=== PATIENT | male | born 1955 | race Caucasian/White ===

== ENCOUNTER 2017-06-22 07:59 | Emergency (ER) | payer MEDICARE, MEDICAID ==
[2017-06-22] MEDS ORDERED: HYDROmorphone 1 MG/ML Syringe IM ONE (08:52)
--- NOTE | 2017-06-22 09:03 | EDM.PDOC ---
ED HPI GENERAL MEDICAL PROBLEM - General Chief Complaint: General Stated Complaint: NOT EATING, VOIDING, WEAKNESS Time Seen by Provider: 06/22/17 08:35 Source of Information: Reports: Patient, Family, RN Notes Reviewed History Limitations: Reports: Physical Impairment - History of Present Illness INITIAL COMMENTS - FREE TEXT/NARRATIVE: 61-year-old gentleman presents emergency department today with increasing weakness and ongoing pain, he has a known history of schizophrenia is a [facility] of a [facility] he is brought in by [facility] provider. Difficult to obtain history and review of systems from him, he does have a known history of chronic neck pain with degenerative disease as well as an L2 compression fracture, states that the pain has been increasing over the last week using combination naproxen and Tylenol with minimal relief pain has been so extensive that he's been unable to eat or drink for the last week. - Related Data Allergies Allergy/AdvReac Type Severity Reaction Status Date / Time Sulfa (Sulfonamide Allergy UNKNOWN Verified 06/22/17 08:30 Antibiotics) Home Meds: Home Meds ClonazePAM [KlonoPIN] 0.5 mg PO TID PRN 06/22/17 [History] Naproxen [Naprosyn] 500 mg PO BID PRN 06/22/17 [History] OLANZapine [Zyprexa] 30 mg PO BID 06/22/17 [History] Polyethylene Glycol 3350 [MiraLAX] 17 gm PO ASDIRECTED PRN 06/22/17 [History] chlorproMAZINE [Thorazine] 50 mg IM BID PRN 06/22/17 [History] chlorproMAZINE [Thorazine] 100 mg PO Q4H PRN 06/22/17 [History] cloNIDine [Catapres] 0.1 mg PO Q12HR 06/22/17 [History] cloZAPine [Fazaclo] 400 mg PO BID 06/22/17 [History] diphenhydrAMINE [Benadryl] 25 mg PO Q4H PRN 06/22/17 [History] Past Medical History Cardiovascular History: Reports: High Cholesterol Psychiatric History: Reports: Schizophrenia Social & Family History - Family History Family Medical History: Noncontributory - Tobacco Use Smoking Status *Q: Never Smoker Second Hand Smoke Exposure: No - Caffeine Use Caffeine Use: Reports: None - Recreational Drug Use Recreational Drug Use: No ED ROS GENERAL - Review of Systems Review Of Systems: Unable To Obtain ED EXAM, GENERAL - Physical Exam Exam: See Below Free Text/Narrative:: General: Male, not in any distress, alert minimally communicative HEENT: head is atraumatic normocephalic, eyes pupils equal round reactive to light, sclera clear no conjunctivitis appreciated. Ears tympanic membranes clear and [place] landmarks and light reflex are present bilaterally canals are clear. Nose no septal deviation, nares are clear, no blood present. Mouth mucosa is moist and pink no erythema or exudate noted in soft palate, tongue is midline uvula is midline, dentition is intact. Neck: Supple no thyromegaly no tracheal deviation. Complains of tenderness both spinally and paraspinally in the cervical region, Nodes: Cervical nodes subclavicular nodes nontender no palpable lymphadenopathy noted. Lungs: clear to auscultation bilaterally with symmetrical respirations, no adventitious noise appreciated. CV: Regular rate and rhythm S1 and S2 appreciated no murmurs rubs or gallops noted. Thorax no pinpoint tenderness to palpation over the cervical spine Abdomen: Soft, nontender, no palpable masses or organomegaly appreciated, no distention no guarding bowel sounds are present, . Neuro: Cranial nerves II through XII grossly intact Skin: Warm and dry, intact Extremities: No lower extremity edema appreciated, Course - Vital Signs Last Recorded V/S: Last Vital Signs Temp 95.9 F 06/22/17 09:49 Pulse 81 06/22/17 09:49 Resp 18 06/22/17 09:49 BP 127/77 06/22/17 09:49 Pulse Ox 100 06/22/17 09:49 - Orders/Labs/Meds Orders: Active Orders 24 hr Category Date Time Status UA W/MICROSCOPIC [URIN] Urgent Lab 06/22/17 09:56 Uncollected Labs: Laboratory Tests 06/22/17 06/22/17 06/22/17 Range/Units 09:06 09:06 09:06 WBC 7.0 (4.5-11.0) K/uL RBC 3.96 L (4.30-5.90) M/uL Hgb 11.6 L (12.0-15.0) g/dL Hct 35.7 L (40.0-54.0) % MCV 90 (80-98) fL MCH 29 (27-31) pg MCHC 33 (32-36) % Plt Count 193 (150-400) K/uL Add Manual Diff Yes Neutrophils % (Manual) 79 H (36-66) % Band Neutrophils % 1 L (5-11) % Lymphocytes % (Manual) 10 L (24-44) % Monocytes % (Manual) 7 H (2-6) % Sodium 149 H (140-148) mmol/L Potassium 3.8 (3.6-5.2) mmol/L Chloride 112 H (100-108) mmol/L Carbon Dioxide 30 (21-32) mmol/L Anion Gap 10.8 (5.0-14.0) mmol/L BUN 35 H (7-18) mg/dL Creatinine 1.4 H (0.8-1.3) mg/dL Est Cr Clr Drug Dosing 59.01 mL/min Estimated GFR (MDRD) 52 L (>60) Glucose 112 H (74-106) mg/dL Lactic Acid (0.4-2.0) mmol/L Calcium 9.9 (8.5-10.1) mg/dL Total Bilirubin 1.1 H (0.2-1.0) mg/dL AST 33 (15-37) U/L ALT 31 (12-78) U/L Alkaline Phosphatase 189 H (46-116) U/L Ammonia 18 (11-32) mmol/L Troponin I < 0.017 (0.000-0.056) ng/mL Total Protein 6.2 L (6.4-8.2) g/dL Albumin 3.1 L (3.4-5.0) g/dL Globulin 3.1 (2.3-3.5) g/dL Albumin/Globulin Ratio 1.0 L (1.2-2.2) 06/22/17 Range/Units 09:06 WBC (4.5-11.0) K/uL RBC (4.30-5.90) M/uL Hgb (12.0-15.0) g/dL Hct (40.0-54.0) % MCV (80-98) fL MCH (27-31) pg MCHC (32-36) % Plt Count (150-400) K/uL Add Manual Diff Neutrophils % (Manual) (36-66) % Band Neutrophils % (5-11) % Lymphocytes % (Manual) (24-44) % Monocytes % (Manual) (2-6) % Sodium (140-148) mmol/L Potassium (3.6-5.2) mmol/L Chloride (100-108) mmol/L Carbon Dioxide (21-32) mmol/L Anion Gap (5.0-14.0) mmol/L BUN (7-18) mg/dL Creatinine (0.8-1.3) mg/dL Est Cr Clr Drug Dosing mL/min Estimated GFR (MDRD) (>60) Glucose (74-106) mg/dL Lactic Acid 1.2 (0.4-2.0) mmol/L Calcium (8.5-10.1) mg/dL Total Bilirubin (0.2-1.0) mg/dL AST (15-37) U/L ALT (12-78) U/L Alkaline Phosphatase (46-116) U/L Ammonia (11-32) mmol/L Troponin I (0.000-0.056) ng/mL Total Protein (6.4-8.2) g/dL Albumin (3.4-5.0) g/dL Globulin (2.3-3.5) g/dL Albumin/Globulin Ratio (1.2-2.2) Meds: Medications Discontinued Medications Generic Name Dose Route Start Last Admin Trade Name Brayanq PRN Reason Stop Dose Admin Hydromorphone HCl 1 mg 06/22/17 08:52 06/22/17 09:03 Dilaudid IM 06/22/17 08:53 1 mg ONETIME ONE Administration Departure - Departure Time of Disposition: 10:23 Disposition: Home, Self-Care 01 Condition: Poor Clinical Impression: Lytic lesion of bone on x-ray - Discharge Information Forms: ED Department Discharge Additional Instructions: Use hydrocodone as needed for pain control, please follow-up with your primary care provider next week for further workup and evaluation - My Orders Last 24 Hours: My Active Orders 06/22/17 09:56 UA W/MICROSCOPIC [URIN] Urgent - Assessment/Plan Last 24 Hours: My Active Orders 06/22/17 09:56 UA W/MICROSCOPIC [URIN] Urgent Plan: Assessment Acuity = acute Site and laterality = multiple vertebral lytic lesions complicating a patient with schizophrenia Etiology = unknown etiology multiple myeloma or metastatic disease from an unknown primary source Manifestations = increasing neck pain Location of injury = Home Lab values = hemoglobin low at 11.6 consistent normochromic anemia sodium elevated at 149 consistent with hypernatremia's creatinine elevated at 1.4 consistent chronic renal failure stage GIII a total bilirubin elevated at 1.1 consistent hyperbilirubinemia alkaline phosphatase elevated 189 albumin low at 3.[address] scan shows multiple lytic lesions throughout cervical and thoracic images Plan I did discuss lab results and CT scan results with his caregiver and my concern for a cancer I also discussed case with his primary care provider felt it was best to finish the workup in clinic as a lot of the tests or send out tests his primary respiratory care faculty agreed he has a follow-up appointment next week with a we'll start the process, he was provided a prescription of 30 hydrocodone for pain Caregiver was in agreement with the plan all questions were answered, they were instructed to return to the emergency department or call for worsening symptoms. This note was dictated using [employer] voice recognition software please call with any questions.
[2017-06-22 09:49] VITALS: BP 127/77
--- NOTE | 2017-06-22 10:11 | CT ---
Cervical Spine wo Cont HISTORY: pain, increased Axial spiral noncontrasted CT scan of the cervical spine was obtained along with sagittal and neff l reconstructions. There are no prior studies for comparison. FINDINGS: Multiple small roundish lytic appearing lesions are seen in multiple cervical and upper th oracic vertebrae. At C2, a lesion is seen to the left of the base of the odontoid process. Several s mall lytic lesions are seen in the C3 vertebrae. There is an expansile lytic lesion along the right pedicle and right transverse process of C5. Several small roundish lytic-appearing lesions are seen in the C6 and C7 vertebral bodies. There is also a lytic expansile lesion at the right pedicle and t ransverse process of C7. Additional small lytic lesions are seen in the vertebral bodies at T1 and T 2. Vertebral body alignment is satisfactory. There is no compression fracture. Small anterior aspects a re noted at C5-6 and C6-7. Cervical basilar relationships are satisfactory. No obvious intraspinal a bnormality can be seen. Perivertebral soft tissues are unremarkable. There are small anterior and po sterior cervical lymph nodes bilaterally. These are not enlarged by size criteria. IMPRESSION: Numerous small lytic appearing lesions are seen in multiple cervical and upper thoracic vertebra as described above. Most prominent lesions are noted right laterally at C5 and C7. Multiple myeloma or lytic metastatic disease could be considered. Recommend clinical correlation. Findings were discussed with Officer in the emergency department at 0945 hours. Total DLP 418 mGycm
== END 2017-06-22 10:35 | disposition home or self-care (01) ==
LOC: JP.ED 07:59
DX: M89.9 Disorder of bone, unspecified (principal); F20.9 Schizophrenia, unspecified; E78.00 Pure hypercholesterolemia, unspecified; Z88.2 Allergy status to sulfonamides; Z79.899 Other long term (current) drug therapy
CPT/HCPCS: 36415; 72125; 80053; 82140; 83605; 84484; 85025; 96372; 99285; J1170; 99284

== ENCOUNTER 2017-06-26 19:30 | Emergency (ER) | payer MEDICARE, MEDICAID ==
[2017-06-26] MEDS ORDERED: Sodium Chloride 0.9% 1,000 ML IV SCH (20:00)
[2017-06-26] MEDS ORDERED: D5 1/2 NS w/ 20 mEq/L KCl 1,000 ML IV SCH (21:00)
[2017-06-26] MEDS ORDERED: HYDROmorphone 0.5 MG/0.5 ML Syringe IVPUSH ONE (21:56)
--- NOTE | 2017-06-26 23:58 | EDM.PDOC ---
ED HPI GENERAL MEDICAL PROBLEM - General Chief Complaint: Respiratory Problem Stated Complaint: MEDICAL VIA [facility] Time Seen by Provider: 06/26/17 19:58 Source of Information: Reports: Patient, Old Records, Other History Limitations: Reports: No Limitations - History of Present Illness INITIAL COMMENTS - FREE TEXT/NARRATIVE: History of present illness: [61-year-old male presenting with progressive weakness and pain complaints. Patient has been a guerra of the [facility] for many years with a diagnosis of undifferentiated schizophrenia. Over the last 3 years he's been residing in a [place] [facility] and now is presenting with progressive weakness and somnolence and pain for the last week or 2. He was in the ER recently and a CT of his neck was done because of a complaint of neck pain which demonstrated lytic lesions of the bones concerning for possible cancer metastatic disease. Patient is very somnolent started getting history from him by caregiver [employer] is with him tonight and most of my history has been gained from her. He's not been running a fever he recently had a pneumonia treated and has completed treatment for that. The patient complains of some leg pain that to primarily involves his neck but again it's difficult to get a good history from him as he is quick to fall asleep when we ask him questions.] Review of systems: As per history of present illness and below otherwise all systems reviewed and negative. Past medical history: As per history of present illness and as reviewed below otherwise noncontributory. Surgical history: As per history of present illness and as reviewed below otherwise noncontributory. Social history: No reported history of drug or alcohol abuse. Family history: As per history of present illness and as reviewed below otherwise noncontributory. Physical exam: HEENT: Atraumatic, normocephalic, pupils reactive, negative for conjunctival pallor or scleral icterus, mucous membranes moist, throat clear, neck supple, nontender, trachea midline. Lungs: Patient has crackles in his bases Heart: S1S2, regular, Abdomen: Soft, nondistended, nontender. Negative for masses or hepatosplenomegaly. Negative for costovertebral tenderness. Pelvis: Stable nontender. Genitourinary: Deferred. Rectal: Deferred. Extremities: Atraumatic, negative for cords or calf pain. Neurovascular unremarkable. Neuro: Patient is very weak and somnolent but is moving all extremities and no focal neurologic deficits are noted. Diagnostics: [Head CT was done and was negative I did a rn otolaryngology film chest abdomen and pelvis and the findings are concerning for lymphoma with multiple lucent osseous lesions in the axial skeleton and pelvis also pancreatitis was discovered on this CT. CBC and complete metabolic panel CRP amylase and lipase were done as well please see that report for details.'s amylase and lipase are elevated significantly. His alkaline phosphatase is elevated as calcium is elevated sodium is 154 potassium is a little low at 3.2 BUN/creatinine are slightly elevated which is most likely prerenal from dehydration.] Therapeutics: [He's been receiving IV fluids in the form of D5 half-normal with 20 of KCl. He' s also received 1 dose of Dilaudid for pain.] Impression: [Newly diagnosed lymphoma please see CT report for details Pancreatitis] Plan: [We've made arrangements to transfer him to [facility] in [place] is the hospitalist who is excepting him and then of course we'll consult with oncology.] Definitive disposition and diagnosis as appropriate pending reevaluation and review of above. Neck Pain Score (Numeric/FACES): 2 - Related Data Allergies Allergy/AdvReac Type Severity Reaction Status Date / Time Sulfa (Sulfonamide Allergy UNKNOWN Verified 06/22/17 08:30 Antibiotics) Home Meds: Home Meds ClonazePAM [KlonoPIN] 0.5 mg PO TID PRN 06/22/17 [History] Naproxen [Naprosyn] 500 mg PO BID PRN 06/22/17 [History] OLANZapine [Zyprexa] 30 mg PO BID 06/22/17 [History] Polyethylene Glycol 3350 [MiraLAX] 17 gm PO ASDIRECTED PRN 06/22/17 [History] chlorproMAZINE [Thorazine] 50 mg IM BID PRN 06/22/17 [History] chlorproMAZINE [Thorazine] 100 mg PO Q4H PRN 06/22/17 [History] cloNIDine [Catapres] 0.1 mg PO Q12HR 06/22/17 [History] cloZAPine [Fazaclo] 400 mg PO BID 06/22/17 [History] diphenhydrAMINE [Benadryl] 25 mg PO Q4H PRN 06/22/17 [History] ARIPiprazole [Abilify] 30 mg PO DAILY 06/26/17 [History] Hydrocodone/Acetaminophen [Hydrocodon-Acetaminophen 5-325] 06/26/17 [History] Past Medical History Cardiovascular History: Reports: High Cholesterol Psychiatric History: Reports: Schizophrenia Oncologic (Cancer) History: Reports: Other (See Below) Other Oncologic History: metastisis bone cancer. Social & Family History - Family History Family Medical History: Noncontributory - Tobacco Use Smoking Status *Q: Unknown Ever Smoked Second Hand Smoke Exposure: No - Caffeine Use Caffeine Use: Reports: Coffee - Recreational Drug Use Recreational Drug Use: No ED ROS GENERAL - Review of Systems Review Of Systems: ROS reveals no pertinent complaints other than HPI. ED EXAM, GENERAL - Physical Exam Exam: See Below Course - Vital Signs Last Recorded V/S: Last Vital Signs Temp 36.6 C 06/26/17 19:39 Pulse 100 06/26/17 21:56 Resp 20 06/26/17 21:56 BP 136/75 06/26/17 21:56 Pulse Ox 95 06/26/17 21:56 - Orders/Labs/Meds Orders: Active Orders 24 hr Category Date Time Status Chest 1V Frontal [CR] Stat Exams 06/26/17 19:59 Taken Chest Abdomen Pelvis wo Cont [CT] Stat Exams 06/26/17 20:50 Taken Head wo Cont [CT] Stat Exams 06/26/17 20:48 Taken UA W/MICROSCOPIC [URIN] Stat Lab 06/26/17 19:59 Uncollected D5 1/2 NS w/ 20 mEq/L KCl 1,000 ml Med 06/26/17 21:00 Active IV ASDIRECTED Medication Orders Potassium Chloride/Dextrose/Sod Cl (D5 1/2 Ns W/ 20 Meq/L Kcl) 1,000 mls @ 150 mls/hr IV ASDIRECTED MIRTHA Last Admin: 06/26/17 21:35 Dose: 150 mls/hr Labs: Laboratory Tests 06/26/17 06/26/17 06/26/17 Range/Units 20:08 20:11 20:11 WBC 7.7 (4.5-11.0) K/uL RBC 4.23 L (4.30-5.90) M/uL Hgb 12.3 (12.0-15.0) g/dL Hct 38.5 L (40.0-54.0) % MCV 91 (80-98) fL MCH 29 (27-31) pg MCHC 32 (32-36) % Plt Count 236 (150-400) K/uL Neut % (Auto) 77 H (36-66) % Lymph % (Auto) 12 L (24-44) % Pickett % (Auto) 11 H (2-6) % Eos % (Auto) 0 L (2-4) % Baso % (Auto) 1 (0-1) % ABG Hemoglobin 12.6 L (13.5-18.0) g/dL ABG Oxyhemoglobin 57.3 % ABG Carboxyhemoglobin 2.0 H (0.0-1.6) % ABG Methemoglobin 1.0 % VBG pH 7.454 H (7.350-7.450) VBG pCO2 46.5 mm/Hg VBG pO2 31.2 mm/Hg VBG HCO3 32.2 mmol/L VBG Total CO2 28.9 mmol/L VBG O2 Saturation 59.1 VBG O2 Content 10.1 %vol VBG Base Excess 7.5 mm/L O2 Delivery Device Room air Sodium (140-148) mmol/L Potassium (3.6-5.2) mmol/L Chloride (100-108) mmol/L Carbon Dioxide (21-32) mmol/L Anion Gap (5.0-14.0) mmol/L BUN (7-18) mg/dL Creatinine (0.8-1.3) mg/dL Est Cr Clr Drug Dosing mL/min Estimated GFR (MDRD) (>60) Glucose (74-106) mg/dL Lactic Acid (0.4-2.0) mmol/L Calcium (8.5-10.1) mg/dL Total Bilirubin (0.2-1.0) mg/dL AST (15-37) U/L ALT (12-78) U/L Alkaline Phosphatase (46-116) U/L Ammonia (11-32) mmol/L C-Reactive Protein (0.0-0.3) mg/dL Total Protein (6.4-8.2) g/dL Albumin (3.4-5.0) g/dL Globulin (2.3-3.5) g/dL Albumin/Globulin Ratio (1.2-2.2) Amylase 551 H (25-115) U/L Lipase 2002 H (73-393) U/L 06/26/17 06/26/17 06/26/17 Range/Units 20:11 20:11 20:55 WBC (4.5-11.0) K/uL RBC (4.30-5.90) M/uL Hgb (12.0-15.0) g/dL Hct (40.0-54.0) % MCV (80-98) fL MCH (27-31) pg MCHC (32-36) % Plt Count (150-400) K/uL Neut % (Auto) (36-66) % Lymph % (Auto) (24-44) % Pickett % (Auto) (2-6) % Eos % (Auto) (2-4) % Baso % (Auto) (0-1) % ABG Hemoglobin (13.5-18.0) g/dL ABG Oxyhemoglobin % ABG Carboxyhemoglobin (0.0-1.6) % ABG Methemoglobin % VBG pH (7.350-7.450) VBG pCO2 mm/Hg VBG pO2 mm/Hg VBG HCO3 mmol/L VBG Total CO2 mmol/L VBG O2 Saturation VBG O2 Content %vol VBG Base Excess mm/L O2 Delivery Device Sodium 154 H (140-148) mmol/L Potassium 3.2 L (3.6-5.2) mmol/L Chloride 114 H (100-108) mmol/L Carbon Dioxide 34 H (21-32) mmol/L Anion Gap 9.2 (5.0-14.0) mmol/L BUN 39 H (7-18) mg/dL Creatinine 1.4 H (0.8-1.3) mg/dL Est Cr Clr Drug Dosing 58.77 mL/min Estimated GFR (MDRD) 52 L (>60) Glucose 99 (74-106) mg/dL Lactic Acid 1.5 (0.4-2.0) mmol/L Calcium 10.5 H (8.5-10.1) mg/dL Total Bilirubin 0.8 (0.2-1.0) mg/dL AST 29 (15-37) U/L ALT 28 (12-78) U/L Alkaline Phosphatase 176 H (46-116) U/L Ammonia 39 H (11-32) mmol/L C-Reactive Protein 14.05 H (0.0-0.3) mg/dL Total Protein 6.7 (6.4-8.2) g/dL Albumin 3.0 L (3.4-5.0) g/dL Globulin 3.7 H (2.3-3.5) g/dL Albumin/Globulin Ratio 0.8 L (1.2-2.2) Amylase (25-115) U/L Lipase (73-393) U/L Meds: Medications Generic Name Dose Route Start Last Admin Trade Name Freq PRN Reason Stop Dose Admin Potassium Chloride/Dextrose/Sod Cl 1,000 mls @ 150 mls/hr 06/26/17 21:00 21:35 D5 1/2 Ns W/ 20 Meq/L Kcl IV 150 mls/hr ASDIRECTED MIRTHA Administration Discontinued Medications Generic Name Dose Route Start Last Admin Trade Name Freq PRN Reason Stop Dose Admin Hydromorphone HCl 0.5 mg 06/26/17 21:56 06/26/17 21:59 Dilaudid IVPUSH 06/26/17 21:57 0.5 mg ONETIME ONE Administration Sodium Chloride 1,000 mls @ 150 mls/hr 06/26/17 20:00 Normal Saline IV ASDIRECTED MIRTHA Departure - Departure Time of Disposition: 23:58 Disposition: DC/Tfer to Acute Hospital 02 Condition: Poor Clinical Impression: Lymphoma Qualifiers: Lymphoma type: unspecified type Lymphoma site: multiple regions Qualified Code( s): C85.98 - Non-Hodgkin lymphoma, unspecified, lymph nodes of multiple sites Pancreatitis Qualifiers: Chronicity: acute Pancreatitis type: unspecified pancreatitis type Acute pancreatitis complication: unspecified Qualified Code(s): K85.90 - Acute pancreatitis without necrosis or infection, unspecified - Discharge Information Forms: ED Department Discharge - My Orders Last 24 Hours: My Active Orders 06/26/17 19:59 Chest 1V Frontal [CR] Stat UA W/MICROSCOPIC [URIN] Stat 06/26/17 20:48 Head wo Cont [CT] Stat 06/26/17 20:50 Chest Abdomen Pelvis wo Cont [CT] Stat 06/26/17 21:00 D5 1/2 NS w/ 20 mEq/L KCl 1,000 ml IV ASDIRECTED - Assessment/Plan Last 24 Hours: My Active Orders 06/26/17 19:59 Chest 1V Frontal [CR] Stat UA W/MICROSCOPIC [URIN] Stat 06/26/17 20:48 Head wo Cont [CT] Stat 06/26/17 20:50 Chest Abdomen Pelvis wo Cont [CT] Stat 06/26/17 21:00 D5 1/2 NS w/ 20 mEq/L KCl 1,000 ml IV ASDIRECTED
[2017-06-27 00:05] VITALS: BP 128/82
--- NOTE | 2017-06-27 09:08 | CR ---
Chest 1V Frontal INDICATION: pneumonia, weakness COMPARISON: None FINDINGS: Single AP view of the chest. Heart size normal. There may be vague infiltrates at the srinivas ng bases. No signs of pulmonary edema. No pleural effusions. IMPRESSION: Possible vague infiltrates at the lung bases. Follow-up exam recommended if symptoms p ersist.
== END 2017-06-27 00:50 ==
LOC: JP.ED 19:30
DX: C85.98 Non-Hodgkin lymphoma, unspecified, lymph nodes of multiple sites (principal); K85.90 Acute pancreatitis without necrosis or infection, unspecified; E78.00 Pure hypercholesterolemia, unspecified; F20.9 Schizophrenia, unspecified; Z85.830 Personal history of malignant neoplasm of bone; Z79.899 Other long term (current) drug therapy; Z88.2 Allergy status to sulfonamides
CPT/HCPCS: 36415; 70450; 71010; 71250; 74176; 80053; 82140; 82150; 82803; 83605; 83690; 85025; 86140; 96361; 96374; 99285; J1170; J3480; 99284

== ENCOUNTER 2018-02-27 22:08 | Inpatient (IN) | payer MEDICARE, MEDICAID ==
--- NOTE | 2018-02-27 22:22 | EDM.PDOC ---
ED HPI GENERAL MEDICAL PROBLEM - General Chief Complaint: Respiratory Problem Stated Complaint: [facility] Time Seen by Provider: 02/27/18 22:10 Source of Information: Reports: EMS, Snf Records History Limitations: Reports: Altered Mental Status, Physical Impairment - History of Present Illness INITIAL COMMENTS - FREE TEXT/NARRATIVE: 62-year-old male sent in from his [place] [facility] with fever and increased respiratory effort. 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 He is DNR. It is suspected that he has lymphoma, and has been on hospice or at least evaluated for hospice in the past. Onset: Unknown/Unsure Severity: Moderate Associated Symptoms: Reports: Other (Patient is catatonic, unknown what type of subjective symptoms he is experiencing) - Related Data Allergies Allergy/AdvReac Type Severity Reaction Status Date / Time Sulfa (Sulfonamide Allergy UNKNOWN Verified 02/27/18 22:20 Antibiotics) Home Meds: Home Meds ClonazePAM [KlonoPIN] 0.5 mg PO TID PRN 06/22/17 [History] OLANZapine [Zyprexa] 30 mg PO BID 06/22/17 [History] Polyethylene Glycol 3350 [MiraLAX] 17 gm PO ASDIRECTED PRN 06/22/17 [History] chlorproMAZINE [Thorazine] 100 mg IM BID PRN 06/22/17 [History] chlorproMAZINE [Thorazine] 100 mg PO Q3H PRN 06/22/17 [History] cloNIDine [Catapres] 0.1 mg PO Q12HR 06/22/17 [History] diphenhydrAMINE [Benadryl] 25 mg PO Q4H PRN 06/22/17 [History] ARIPiprazole [Abilify] 30 mg PO DAILY 06/26/17 [History] risperiDONE 2 mg PO BID 02/27/18 [History] Past Medical History Cardiovascular History: Reports: High Cholesterol Psychiatric History: Reports: Schizophrenia Oncologic (Cancer) History: Reports: Other (See Below) Other Oncologic History: metastisis bone cancer. Social & Family History - Family History Family Medical History: Noncontributory - Tobacco Use Smoking Status *Q: Unknown Ever Smoked Second Hand Smoke Exposure: No - Caffeine Use Caffeine Use: Reports: Coffee - Recreational Drug Use Recreational Drug Use: No ED ROS GENERAL - Review of Systems Review Of Systems: Unable To Obtain ED EXAM, GENERAL - Physical Exam Exam: See Below General Appearance: Alert, No Apparent Distress Eye Exam: Bilateral Eye: EOMI Throat/Mouth: Other (Somewhat dry oral mucosa, multiple breathing oxygen) Head: Atraumatic Respiratory/Chest: Decreased Breath Sounds (Marked decreased breath sounds except in the right upper posterior causey) Cardiovascular: Regular Rate, Rhythm, Tachycardia GI/Abdominal: Normal Bowel Sounds, Soft, Non-Tender Extremities: No: Pedal Edema Neurological: Inattentive, Unresponsive Skin Exam: Warm, Dry Course - Vital Signs Last Recorded V/S: Last Vital Signs Temp 97.5 F 02/28/18 16:58 Pulse 100 02/28/18 16:58 Resp 16 02/28/18 16:58 BP 129/67 02/28/18 16:58 Pulse Ox 99 02/28/18 16:58 - Orders/Labs/Meds Orders: Active Orders 24 hr Category Date Time Status CULTURE BLOOD [BC] Urgent Lab 02/27/18 22:15 Received CULTURE BLOOD [BC] Urgent Lab 02/27/18 22:15 Received INFLUENZA A+B AG SCREEN [RM] Stat Lab 02/28/18 00:40 Ordered UA W/MICROSCOPIC [URIN] Urgent Lab 02/27/18 23:17 Ordered Blood Culture x2 Reflex Set [OM.PC] Urgent Oth 02/27/18 22:14 Ordered Medication Orders Acetaminophen (Tylenol) 650 mg PO Q4H PRN PRN Reason: Pain (Mild 1-3)/fever Aripiprazole (Abilify) 30 mg PO DAILY [facility] Last Admin: 02/28/18 09:39 Dose: 30 mg Chlorpromazine HCl (Thorazine) 100 mg PO Q3H PRN PRN Reason: Agitation Chlorpromazine HCl (Thorazine) 100 mg IM BID PRN PRN Reason: aggitation Clonazepam (Klonopin) 0.5 mg PO TID PRN PRN Reason: Anxiety Clonidine HCl (Catapres) 0.1 mg PO Q12H [facility] Last Admin: 02/28/18 09:44 Dose: 0.1 mg Diphenhydramine HCl (Benadryl) 25 mg PO Q4H PRN PRN Reason: drooling Enoxaparin Sodium (Lovenox) 40 mg SUBCUT BEDTIME [facility] Heparin Sodium (Porcine) (Heparin Lock Flush 100 Units/Ml) 500 units FLUSH ASDIRECTED PRN PRN Reason: IV Use Last Admin: 02/28/18 13:13 Dose: 500 units Azithromycin 500 mg/ Sodium (Chloride) 250 mls @ 250 mls/hr IV Q24H [facility] Last Admin: 02/28/18 00:54 Dose: 250 mls/hr Ceftriaxone Sodium 1 gm/ (Sodium Chloride) 50 mls @ 100 mls/hr IV Q24H [facility] Last Admin: 02/28/18 00:38 Dose: Magnesium Hydroxide (Milk Of Magnesia) 30 ml PO Q12H PRN PRN Reason: Constipation Olanzapine (Zyprexa) 30 mg PO BID [facility] Last Admin: 02/28/18 09:37 Dose: 30 mg Ondansetron HCl (Zofran) 4 mg IV Q4H PRN PRN Reason: Nausea/Vomiting Oxycodone HCl (Oxycodone) 5 mg PO Q4H PRN PRN Reason: Pain (moderate 4-6) Polyethylene Glycol (Miralax) 17 gm PO DAILY PRN PRN Reason: Constipation Risperidone (Risperidal) 2 mg PO BID [facility] Last Admin: 02/28/18 09:37 Dose: 2 mg Admin: 02/28/18 00:54 Dose: Senna/Docusate Sodium (Senna Plus) 1 tab PO BID PRN PRN Reason: Constipation Sodium Chloride (Saline Flush) 10 ml FLUSH ASDIRECTED PRN PRN Reason: Keep Vein Open Labs: Laboratory Tests 02/27/18 02/27/18 02/27/18 Range/Units 22:15 22:15 23:17 WBC 6.0 (4.5-11.0) K/uL RBC 4.04 L (4.30-5.90) M/uL Hgb 12.4 (12.0-15.0) g/dL Hct 36.7 L (40.0-54.0) % MCV 91 (80-98) fL MCH 31 (27-31) pg MCHC 34 (32-36) % Plt Count 195 (150-400) K/uL Neut % (Auto) 83 H (36-66) % Lymph % (Auto) 8 L (24-44) % [place] % (Auto) 9 H (2-6) % Eos % (Auto) 0 L (2-4) % Baso % (Auto) 0 (0-1) % Sodium 141 (140-148) mmol/L Potassium 4.1 (3.6-5.2) mmol/L Chloride 104 (100-108) mmol/L Carbon Dioxide 27 (21-32) mmol/L Anion Gap 9.9 (5.0-14.0) mmol/L BUN 17 D (7-18) mg/dL Creatinine 0.9 (0.8-1.3) mg/dL Est Cr Clr Drug Dosing TNP Estimated GFR (MDRD) > 60 (>60) Glucose 114 H (74-106) mg/dL Lactic Acid (0.4-2.0) mmol/L Calcium 8.4 L D (8.5-10.1) mg/dL Total Bilirubin 0.9 (0.2-1.0) mg/dL AST 18 (15-37) U/L ALT 21 (12-78) U/L Alkaline Phosphatase 119 H (46-116) U/L Total Protein 5.6 L (6.4-8.2) g/dL Albumin 3.3 L (3.4-5.0) g/dL Globulin 2.3 (2.3-3.5) g/dL Albumin/Globulin Ratio 1.4 (1.2-2.2) Urine Color [place] Urine Appearance Clear Urine pH 7.0 (4.5-8.0) Ur Specific [place] 1.010 (1.008-1.030) Urine Protein Negative (NEGATIVE) mg/dL Urine Glucose (UA) Normal (NEGATIVE) mg/dL Urine Ketones 15 H (NEGATIVE) mg/dL Urine Occult Blood Negative (NEGATIVE) Urine Nitrite Negative (NEGAITVE) Urine Bilirubin Small (NEGATIVE) Urine Urobilinogen 8 (NORMAL) mg/dL Ur Leukocyte Esterase Negative (NEGATIVE) Urine RBC 0-5 (0-5) Urine WBC 0-5 (0-5) Ur Epithelial Cells Not seen Amorphous Sediment Few Urine Bacteria Not seen Urine Mucus Not seen 02/27/18 Range/Units 23:43 WBC (4.5-11.0) K/uL RBC (4.30-5.90) M/uL Hgb (12.0-15.0) g/dL Hct (40.0-54.0) % MCV (80-98) fL MCH (27-31) pg MCHC (32-36) % Plt Count (150-400) K/uL Neut % (Auto) (36-66) % Lymph % (Auto) (24-44) % [place] % (Auto) (2-6) % Eos % (Auto) (2-4) % Baso % (Auto) (0-1) % Sodium (140-148) mmol/L Potassium (3.6-5.2) mmol/L Chloride (100-108) mmol/L Carbon Dioxide (21-32) mmol/L Anion Gap (5.0-14.0) mmol/L BUN (7-18) mg/dL Creatinine (0.8-1.3) mg/dL Est Cr Clr Drug Dosing Estimated GFR (MDRD) (>60) Glucose (74-106) mg/dL Lactic Acid 1.6 (0.4-2.0) mmol/L Calcium (8.5-10.1) mg/dL Total Bilirubin (0.2-1.0) mg/dL AST (15-37) U/L ALT (12-78) U/L Alkaline Phosphatase (46-116) U/L Total Protein (6.4-8.2) g/dL Albumin (3.4-5.0) g/dL Globulin (2.3-3.5) g/dL Albumin/Globulin Ratio (1.2-2.2) Urine Color Urine Appearance Urine pH (4.5-8.0) Ur Specific [place] (1.008-1.030) Urine Protein (NEGATIVE) mg/dL Urine Glucose (UA) (NEGATIVE) mg/dL Urine Ketones (NEGATIVE) mg/dL Urine Occult Blood (NEGATIVE) Urine Nitrite (NEGAITVE) Urine Bilirubin (NEGATIVE) Urine Urobilinogen (NORMAL) mg/dL Ur Leukocyte Esterase (NEGATIVE) Urine RBC (0-5) Urine WBC (0-5) Ur Epithelial Cells Amorphous Sediment Urine Bacteria Urine Mucus Meds: Medications Generic Name Dose Route Start Last Admin Trade Name Freq PRN Reason Stop Dose Admin Acetaminophen 650 mg 02/28/18 00:15 Tylenol PO Q4H PRN Pain (Mild 1-3)/fever Aripiprazole 30 mg 02/28/18 09:00 02/28/18 09:39 Abilify PO 30 mg DAILY MIRTHA Administration Chlorpromazine HCl 100 mg 02/28/18 00:15 Thorazine PO Q3H PRN Agitation Chlorpromazine HCl 100 mg 02/28/18 00:15 Thorazine IM BID PRN aggitation Clonazepam 0.5 mg 02/28/18 00:45 Klonopin PO TID PRN Anxiety Clonidine HCl 0.1 mg 02/28/18 09:00 02/28/18 09:44 Catapres PO 0.1 mg Q12H MIRTHA Administration Diphenhydramine HCl 25 mg 02/28/18 00:15 Benadryl PO Q4H PRN drooling Enoxaparin Sodium 40 mg 02/28/18 21:00 Lovenox SUBCUT BEDTIME [facility] Heparin Sodium (Porcine) 500 units 02/28/18 13:04 02/28/18 13:13 Heparin Lock Flush 100 Units/Ml FLUSH 500 units ASDIRECTED PRN Administration IV Use Azithromycin 500 mg/ Sodium 250 mls @ 250 mls/hr 02/28/18 01:00 02/28/18 00: 54 Chloride IV 250 mls/hr Q24H [facility] Administration Ceftriaxone Sodium 1 gm/ 50 mls @ 100 mls/hr 02/28/18 00:00 02/28/18 00:38 Sodium Chloride IV Not Given Q24H [facility] Magnesium Hydroxide 30 ml 02/28/18 00:15 Milk Of Magnesia PO Q12H PRN Constipation Olanzapine 30 mg 02/28/18 09:00 02/28/18 09:37 Zyprexa PO 30 mg BID MIRTHA Administration Ondansetron HCl 4 mg 02/28/18 00:15 Zofran IV Q4H PRN Nausea/Vomiting Oxycodone HCl 5 mg 02/28/18 00:15 Oxycodone PO Q4H PRN Pain (moderate 4-6) Polyethylene Glycol 17 gm 02/28/18 00:15 Miralax PO DAILY PRN Constipation Risperidone 2 mg 02/28/18 00:45 02/28/18 09:37 Risperidal PO 2 mg BID MIRTHA Administration Senna/Docusate Sodium 1 tab 02/28/18 00:15 Senna Plus PO BID PRN Constipation Sodium Chloride 10 ml 02/28/18 00:15 Saline Flush FLUSH ASDIRECTED PRN Keep Vein Open Discontinued Medications Generic Name Dose Route Start Last Admin Trade Name Freq PRN Reason Stop Dose Admin Enoxaparin Sodium 40 mg 02/28/18 00:15 02/28/18 00:53 Lovenox SUBCUT 40 mg DAILY MIRTHA Administration Heparin Sodium (Porcine) Confirm 02/28/18 13:12 02/28/18 15:04 Heparin Lock Flush 100 Units/Ml Administered 02/28/18 13:13 Not Given Dose 500 units .ROUTE .STK-MED ONE Sodium Chloride 1,000 mls @ 1,000 mls/hr 02/27/18 22:30 02/27/18 22:56 Normal Saline IV 02/28/18 00:15 1,000 mls/hr ASDIRECTED MIRTHA Administration Ceftriaxone Sodium 1 gm/ 50 mls @ 100 mls/hr 02/27/18 22:38 02/27/18 22:56 Sodium Chloride IV 02/27/18 23:07 100 mls/hr ONETIME ONE Administration Levofloxacin/Dextrose 500 mg/ 100 mls @ 100 mls/hr 02/27/18 22:39 02/27/18 23 :22 Premix IV 02/27/18 23:38 100 mls/hr ONETIME ONE Administration Lactated Ringer's 1,000 mls @ 250 mls/hr 02/28/18 00:15 02/28/18 00:57 Ringers, Lactated IV 02/28/18 04:16 250 mls/hr ASDIRECTED MIRTHA Administration Lactated Ringer's 1,000 mls @ 125 mls/hr 02/28/18 00:15 Ringers, Lactated IV 02/28/18 03:45 ASDIRECTED MIRTHA Lactated Ringer's 1,000 mls @ 125 mls/hr 02/28/18 06:00 02/28/18 06:05 Ringers, Lactated IV 125 mls/hr ASDIRECTED MIRTHA Administration - Re-Assessments/Exams Free Text/Narrative Re-Assessment/Exam: 02/27/18 22:22 Blood cultures were obtained, a portable chest x-ray, CBC CMP were also obtained. IV fluids are started. 02/27/18 22:40 Portable chest x-ray showed likely perihilar congestion with possibly a retrocardiac infiltrate. IV antibiotics, Rocephin and Levaquin were started and Dr. Montilla was called to consider admission of the patient for the next 1-2 days. Departure - Departure Time of Disposition: 23:55 Disposition: Admitted As Inpatient 66 Condition: Fair Clinical Impression: Pneumonia Qualifiers: Pneumonia type: due to unspecified organism Laterality: left Lung location: lower lobe of lung Qualified Code(s): J18.1 - Lobar pneumonia, unspecified organism - Discharge Information - My Orders Last 24 Hours: My Active Orders 02/27/18 22:14 Blood Culture x2 Reflex Set [OM.PC] Urgent 02/27/18 22:15 CULTURE BLOOD [BC] Urgent CULTURE BLOOD [BC] Urgent 02/27/18 23:17 UA W/MICROSCOPIC [URIN] Urgent - Assessment/Plan Last 24 Hours: My Active Orders 02/27/18 22:14 Blood Culture x2 Reflex Set [OM.PC] Urgent 02/27/18 22:15 CULTURE BLOOD [BC] Urgent CULTURE BLOOD [BC] Urgent 02/27/18 23:17 UA W/MICROSCOPIC [URIN] Urgent
[2018-02-27] MEDS ORDERED: Sodium Chloride 0.9% 1,000 ML IV SCH (22:30)
[2018-02-27] MEDS ORDERED: cefTRIAXone 1 GM in Sodium Chloride 0.9% 50 ML IV ONE (22:38)
[2018-02-27] MEDS ORDERED: Levofloxacin/Dextrose 5%-Water 500 MG in Premix Bag 1 BAG IV ONE (22:39)
--- NOTE | 2018-02-28 00:01 | PCM.HP ---
H&P History of Present Illness - General Date of Service: 02/27/18 Admit Problem/Dx: Source of Information: Old Records, Provider, RN Notes Reviewed History Limitations: Reports: Altered Mental Status (Chronic Schizophrenia) - History of Present Illness Initial Comments - Free Text/Narative: Mr. Wallace is a 62-year-old gentleman who is admitted through the emergency department with fever and hypoxia secondary to left lung pneumonia. He has a history of long-standing schizophrenia and is a [facility] a local [facility]. He was noted by staff to have temperature elevation and respiratory compromise. He was brought into the emergency department, white blood cell count is normal but he does have a documented temperature elevation. He has a known history of follicular lymphoma and has completed his initial course of chemotherapy. PET scan that was obtained prior to his last oncology visit showed excellent control of the lymphoma following his chemotherapy. He did have an episode of influenza earlier this year. He is noncommunicative and unable to provide significant information concerning current symptoms or recent events. - Related Data Allergies/Adverse Reactions: Allergies Allergy/AdvReac Type Severity Reaction Status Date / Time Sulfa (Sulfonamide Allergy UNKNOWN Verified 02/27/18 22:20 Antibiotics) Home Medications: Home Meds ClonazePAM [KlonoPIN] 0.5 mg PO TID PRN 06/22/17 [History] OLANZapine [Zyprexa] 30 mg PO BID 06/22/17 [History] Polyethylene Glycol 3350 [MiraLAX] 17 gm PO ASDIRECTED PRN 06/22/17 [History] chlorproMAZINE [Thorazine] 100 mg IM BID PRN 06/22/17 [History] chlorproMAZINE [Thorazine] 100 mg PO Q3H PRN 06/22/17 [History] cloNIDine [Catapres] 0.1 mg PO Q12HR 06/22/17 [History] diphenhydrAMINE [Benadryl] 25 mg PO Q4H PRN 06/22/17 [History] ARIPiprazole [Abilify] 30 mg PO DAILY 06/26/17 [History] risperiDONE 2 mg PO BID 02/27/18 [History] Past Medical History Cardiovascular History: Reports: High Cholesterol Psychiatric History: Reports: Schizophrenia Oncologic (Cancer) History: Reports: Other (See Below) Other Oncologic History: metastisis bone cancer. Social & Family History - Family History Family Medical History: Noncontributory - Tobacco Use Smoking Status *Q: Unknown Ever Smoked Second Hand Smoke Exposure: No - Caffeine Use Caffeine Use: Reports: Coffee - Recreational Drug Use Recreational Drug Use: No H&P Review of Systems - Review of Systems: Review Of Systems: Unable To Obtain General: Reports: ROS unobtainable (Noncommunicative ) Exam - Exam Exam: See Below - Vital Signs Vital Signs: Last Vital Signs Temp 101.1 F H 02/27/18 22:11 Pulse 113 H 02/27/18 22:11 Resp 14 02/27/18 22:11 BP 115/69 02/27/18 22:11 Pulse Ox 96 02/27/18 22:11 Weight: 161 lb - Exam Quality Assessment: Supplemental Oxygen, DVT Prophylaxis General: Alert, Cooperative, Mild Distress HEENT: Conjunctiva Clear, Hearing Intact, Mucosa Moist & [place], Normal Nasal Septum, Posterior Pharynx Clear, Pupils Equal Neck: Supple, Trachea Midline, +2 Carotid Pulse wo Bruit Lungs: Clear to Auscultation, Normal Respiratory Effort Cardiovascular: Regular Rhythm, Normal S1, Normal S2, Tachycardia. No: Systolic Murmur, Diastolic Murmur GI/Abdominal Exam: Soft, Non-Tender, No Organomegaly, No Distention Extremities: Non-Tender, No Pedal Edema Skin: Warm, Dry, Intact - Patient Data Lab Results Last 24 hrs: Laboratory Results - last 24 hr 02/27/18 02/27/18 02/27/18 Range/Units 22:15 22:15 23:17 WBC 6.0 (4.5-11.0) K/uL RBC 4.04 L (4.30-5.90) M/uL Hgb 12.4 (12.0-15.0) g/dL Hct 36.7 L (40.0-54.0) % MCV 91 (80-98) fL MCH 31 (27-31) pg MCHC 34 (32-36) % Plt Count 195 (150-400) K/uL Neut % (Auto) 83 H (36-66) % Lymph % (Auto) 8 L (24-44) % [place] % (Auto) 9 H (2-6) % Eos % (Auto) 0 L (2-4) % Baso % (Auto) 0 (0-1) % Sodium 141 (140-148) mmol/L Potassium 4.1 (3.6-5.2) mmol/L Chloride 104 (100-108) mmol/L Carbon Dioxide 27 (21-32) mmol/L Anion Gap 9.9 (5.0-14.0) mmol/L BUN 17 D (7-18) mg/dL Creatinine 0.9 (0.8-1.3) mg/dL Est Cr Clr Drug Dosing TNP Estimated GFR (MDRD) > 60 (>60) Glucose 114 H (74-106) mg/dL Calcium 8.4 L D (8.5-10.1) mg/dL Total Bilirubin 0.9 (0.2-1.0) mg/dL AST 18 (15-37) U/L ALT 21 (12-78) U/L Alkaline Phosphatase 119 H (46-116) U/L Total Protein 5.6 L (6.4-8.2) g/dL Albumin 3.3 L (3.4-5.0) g/dL Globulin 2.3 (2.3-3.5) g/dL Albumin/Globulin Ratio 1.4 (1.2-2.2) Urine Color [place] Urine Appearance Clear Urine pH 7.0 (4.5-8.0) Ur Specific [place] 1.010 (1.008-1.030) Urine Protein Negative (NEGATIVE) mg/dL Urine Glucose (UA) Normal (NEGATIVE) mg/dL Urine Ketones 15 H (NEGATIVE) mg/dL Urine Occult Blood Negative (NEGATIVE) Urine Nitrite Negative (NEGAITVE) Urine Bilirubin Small (NEGATIVE) Urine Urobilinogen 8 (NORMAL) mg/dL Ur Leukocyte Esterase Negative (NEGATIVE) Urine RBC 0-5 (0-5) Urine WBC 0-5 (0-5) Ur Epithelial Cells Not seen Amorphous Sediment Few Urine Bacteria Not seen Urine Mucus Not seen Result Diagrams: 02/27/18 22:15 02/27/18 22:15 *Q Meaningful Use (ADM) - VTE Risk Assess *Q Each Risk Factor Represents 1 Point: None Total Score 1 Point Risk Factors: 0 Each Risk Factor Represents 2 Points: Age 60 - 74 Years, Malignancy (present or previous) Total Score 2 Point Risk Factors: 4 Each Risk Factor Represents 3 Points: None Total Score 3 Point Risk Factors: 0 Each Risk Factor Represents 5 Points: None Total Score 5 Point Risk Factors: 0 Venous Thromboembolism Risk Factor Score *Q: 4 Problem List Initiated/Reviewed/Updated: Yes Orders Last 24hrs: Active Orders 24 hr Category Date Time Status Patient Status Manage Transfer [TRANSFER] Routine ADT 02/27/18 23:44 Ordered Chest 1V Frontal [CR] Stat Exams 02/27/18 22:14 Taken CULTURE BLOOD [BC] Urgent Lab 02/27/18 22:15 Received CULTURE BLOOD [BC] Urgent Lab 02/27/18 22:15 Received INFLUENZA A+B AG SCREEN [RM] Stat Lab 02/27/18 23:43 Ordered LACTIC ACID [CHEM] Stat Lab 02/27/18 23:43 Ordered UA W/MICROSCOPIC [URIN] Urgent Lab 02/27/18 23:17 Ordered Sodium Chloride 0.9% [Normal Saline] 1,000 ml Med 02/27/18 22:30 Active IV ASDIRECTED Blood Culture x2 Reflex Set [OM.PC] Urgent Oth 02/27/18 22:14 Ordered Resuscitation Status Routine Resus Stat 02/27/18 23:46 Ordered Medication Orders Sodium Chloride (Normal Saline) 1,000 mls @ 1,000 mls/hr IV ASDIRECTED MIRTHA Last Admin: 02/27/18 22:56 Dose: 1,000 mls/hr Assessment/Plan Comment:: ASSESSMENT AND PLAN LEFT LUNG PNEUMONIA-onset of fever and mild hypoxia earlier this evening. White blood cell count is within normal range, chest x-ray shows possible left lower lobe infiltrate. -Blood cultures pending -influenza antigens and lactic acid pending - supplemental oxygen as needed -IV ceftriaxone and azithromycin FOLLICULAR LYMPHOMA-status post first course of chemotherapy with good result and no evidence of residual disease on PET scan. No evidence of current neutropenia or significant immune compromise -outpatient follow-up with oncology CHRONIC SCHIZOPHRENIA -continue outpatient medical regimen MAINTENANCE ISSUES -DVT prophylaxis; Lovenox 40 mg subcutaneous daily -GI prophylaxis; not indicated -Rojas catheter; not indicated -Nutrition; regular diet -Nicotine dependence;Not required CODE STATUS- DNR/DNI ADMISSION STATUS-patient will be admitted to inpatient status, expect at least a 2 night hospital stay for evaluation and management of problems as outlined above. At the time of this admission I do not reasonably expected evaluation and management of this problem will require more than a 96 hour hospital stay. DISPOSITION-anticipate discharge to home after the hospital stay. PRIMARY CARE PROVIDER-
[2018-02-28] MEDS ORDERED: Enoxaparin 40 MG/0.4 ML Syringe SUBCUT SCH (00:15)
[2018-02-28] MEDS ORDERED: Sodium Chloride 0.9% 10 ML Syringe FLUSH PRN (00:15)
[2018-02-28] MEDS ORDERED: oxyCODONE 5 MG Tab PO PRN (00:15)
[2018-02-28] MEDS ORDERED: Ondansetron 4 MG/2 ML SDV IV PRN (00:15)
[2018-02-28] MEDS ORDERED: Lactated Ringers 1,000 ML IV SCH ×3 (00:15→06:00)
[2018-02-28] MEDS ORDERED: chlorproMAZINE 50 MG/2 ML Amp IM PRN (00:15)
[2018-02-28] MEDS ORDERED: diphenhydrAMINE 25 MG Cap PO PRN (00:15)
[2018-02-28] MEDS ORDERED: Polyethylene Glycol 3350 Powder 17 GM Packet PO PRN (00:15)
[2018-02-28] MEDS ORDERED: Acetaminophen 325 MG Tab PO PRN (00:15)
[2018-02-28] MEDS ORDERED: Magnesium Hydroxide 400 MG/5 ML Susp 30 ML Cup PO PRN (00:15)
[2018-02-28] MEDS: cefTRIAXone 1 GM in Sodium Chloride 0.9% 50 ML IV SCH (00:38)
[2018-02-28] MEDS: risperiDONE 1 MG Tab PO SCH ×3 (00:54→21:47)
[2018-02-28] MEDS: Azithromycin 500 MG in Sodium Chloride 0.9% 250 ML IV SCH (00:54)
--- NOTE | 2018-02-28 09:24 | CR ---
Chest 1V Frontal HISTORY: Fever COMPARISON: Chest x-ray 06/26/2017. FINDINGS: Right-sided Port-A-Cath. Rotated film to the left. The cardiac size is magnified from anjelica ble technique and is borderline enlarged. No acute congestive change or dense infiltrate seen.
[2018-02-28] MEDS: OLANZapine 5 MG Tab PO SCH ×2 (09:37→21:46)
[2018-02-28] MEDS: ARIPiprazole 10 MG Tab PO SCH (09:39)
[2018-02-28] MEDS: cloNIDine 0.1 MG Tab PO SCH ×2 (09:44→21:43)
--- NOTE | 2018-02-28 11:55 | PCM.PN ---
- General Info Date of Service: 02/28/18 Subjective Update: Mr. Mary has been stable since admission with no significant respiratory compromise, vital signs have been stable and he has remained afebrile. He is noncommunicative and unable to provide significant information concerning symptoms or review of systems. - Patient Data Vitals - Most Recent: Last Vital Signs Temp 98.5 F 02/28/18 07:32 Pulse 97 02/28/18 07:32 Resp 16 02/28/18 07:32 BP 101/60 02/28/18 09:44 Pulse Ox 95 02/28/18 07:32 Weight - Most Recent: 160 lb 15.987 oz I&O - Last 24 Hours: Intake & Output 02/27/18 02/28/18 02/28/18 22:59 06:59 14:59 Intake Total 1571 150 Balance 1571 150 Lab Results Last 24 Hours: Laboratory Results - last 24 hr 02/27/18 02/27/18 02/27/18 Range/Units 22:15 22:15 23:17 WBC 6.0 (4.5-11.0) K/uL RBC 4.04 L (4.30-5.90) M/uL Hgb 12.4 (12.0-15.0) g/dL Hct 36.7 L (40.0-54.0) % MCV 91 (80-98) fL MCH 31 (27-31) pg MCHC 34 (32-36) % Plt Count 195 (150-400) K/uL Neut % (Auto) 83 H (36-66) % Lymph % (Auto) 8 L (24-44) % [place] % (Auto) 9 H (2-6) % Eos % (Auto) 0 L (2-4) % Baso % (Auto) 0 (0-1) % Sodium 141 (140-148) mmol/L Potassium 4.1 (3.6-5.2) mmol/L Chloride 104 (100-108) mmol/L Carbon Dioxide 27 (21-32) mmol/L Anion Gap 9.9 (5.0-14.0) mmol/L BUN 17 D (7-18) mg/dL Creatinine 0.9 (0.8-1.3) mg/dL Est Cr Clr Drug Dosing TNP Estimated GFR (MDRD) > 60 (>60) Glucose 114 H (74-106) mg/dL Lactic Acid (0.4-2.0) mmol/L Calcium 8.4 L D (8.5-10.1) mg/dL Total Bilirubin 0.9 (0.2-1.0) mg/dL AST 18 (15-37) U/L ALT 21 (12-78) U/L Alkaline Phosphatase 119 H (46-116) U/L Total Protein 5.6 L (6.4-8.2) g/dL Albumin 3.3 L (3.4-5.0) g/dL Globulin 2.3 (2.3-3.5) g/dL Albumin/Globulin Ratio 1.4 (1.2-2.2) Urine Color [place] Urine Appearance Clear Urine pH 7.0 (4.5-8.0) Ur Specific [place] 1.010 (1.008-1.030) Urine Protein Negative (NEGATIVE) mg/dL Urine Glucose (UA) Normal (NEGATIVE) mg/dL Urine Ketones 15 H (NEGATIVE) mg/dL Urine Occult Blood Negative (NEGATIVE) Urine Nitrite Negative (NEGAITVE) Urine Bilirubin Small (NEGATIVE) Urine Urobilinogen 8 (NORMAL) mg/dL Ur Leukocyte Esterase Negative (NEGATIVE) Urine RBC 0-5 (0-5) Urine WBC 0-5 (0-5) Ur Epithelial Cells Not seen Amorphous Sediment Few Urine Bacteria Not seen Urine Mucus Not seen 02/27/18 02/28/18 02/28/18 Range/Units 23:43 05:11 05:11 WBC 5.9 (4.5-11.0) K/uL RBC 3.69 L (4.30-5.90) M/uL Hgb 11.8 L (12.0-15.0) g/dL Hct 33.3 L (40.0-54.0) % MCV 90 (80-98) fL MCH 32 H (27-31) pg MCHC 35 (32-36) % Plt Count 150 (150-400) K/uL Neut % (Auto) 77 H (36-66) % Lymph % (Auto) 14 L (24-44) % [place] % (Auto) 10 H (2-6) % Eos % (Auto) 0 L (2-4) % Baso % (Auto) 0 (0-1) % Sodium 141 (140-148) mmol/L Potassium 4.1 (3.6-5.2) mmol/L Chloride 107 (100-108) mmol/L Carbon Dioxide 24 (21-32) mmol/L Anion Gap 9.9 (5.0-14.0) mmol/L BUN 16 (7-18) mg/dL Creatinine 0.7 L (0.8-1.3) mg/dL Est Cr Clr Drug Dosing 104.08 Estimated GFR (MDRD) > 60 (>60) Glucose 78 (74-106) mg/dL Lactic Acid 1.6 (0.4-2.0) mmol/L Calcium 8.0 L (8.5-10.1) mg/dL Total Bilirubin (0.2-1.0) mg/dL AST (15-37) U/L ALT (12-78) U/L Alkaline Phosphatase (46-116) U/L Total Protein (6.4-8.2) g/dL Albumin (3.4-5.0) g/dL Globulin (2.3-3.5) g/dL Albumin/Globulin Ratio (1.2-2.2) Urine Color Urine Appearance Urine pH (4.5-8.0) Ur Specific [place] (1.008-1.030) Urine Protein (NEGATIVE) mg/dL Urine Glucose (UA) (NEGATIVE) mg/dL Urine Ketones (NEGATIVE) mg/dL Urine Occult Blood (NEGATIVE) Urine Nitrite (NEGAITVE) Urine Bilirubin (NEGATIVE) Urine Urobilinogen (NORMAL) mg/dL Ur Leukocyte Esterase (NEGATIVE) Urine RBC (0-5) Urine WBC (0-5) Ur Epithelial Cells Amorphous Sediment Urine Bacteria Urine Mucus Giovanny Results Last 24 Hours: Microbiology 02/28/18 00:40 Influenza Type A Antigen Screen - Final Nasal, Unspecified NEGATIVE INFLUENZA A VIRUS AG Influenza Type B Antigen Screen - Final NEGATIVE INFLUENZA B VIRUS AG Med Orders - Current: Current Medications Acetaminophen (Tylenol) 650 mg PO Q4H PRN PRN Reason: Pain (Mild 1-3)/fever Aripiprazole (Abilify) 30 mg PO DAILY [facility] Last Admin: 02/28/18 09:39 Dose: 30 mg Chlorpromazine HCl (Thorazine) 100 mg PO Q3H PRN PRN Reason: Agitation Chlorpromazine HCl (Thorazine) 100 mg IM BID PRN PRN Reason: aggitation Clonazepam (Klonopin) 0.5 mg PO TID PRN PRN Reason: Anxiety Clonidine HCl (Catapres) 0.1 mg PO Q12H [facility] Last Admin: 02/28/18 09:44 Dose: 0.1 mg Diphenhydramine HCl (Benadryl) 25 mg PO Q4H PRN PRN Reason: drooling Enoxaparin Sodium (Lovenox) 40 mg SUBCUT BEDTIME [facility] Azithromycin 500 mg/ Sodium (Chloride) 250 mls @ 250 mls/hr IV Q24H [facility] Last Admin: 02/28/18 00:54 Dose: 250 mls/hr Ceftriaxone Sodium 1 gm/ (Sodium Chloride) 50 mls @ 100 mls/hr IV Q24H [facility] Last Admin: 02/28/18 00:38 Dose: Not Given Magnesium Hydroxide (Milk Of Magnesia) 30 ml PO Q12H PRN PRN Reason: Constipation Olanzapine (Zyprexa) 30 mg PO BID [facility] Last Admin: 02/28/18 09:37 Dose: 30 mg Ondansetron HCl (Zofran) 4 mg IV Q4H PRN PRN Reason: Nausea/Vomiting Oxycodone HCl (Oxycodone) 5 mg PO Q4H PRN PRN Reason: Pain (moderate 4-6) Polyethylene Glycol (Miralax) 17 gm PO DAILY PRN PRN Reason: Constipation Risperidone (Risperidal) 2 mg PO BID [facility] Last Admin: 02/28/18 09:37 Dose: 2 mg Senna/Docusate Sodium (Senna Plus) 1 tab PO BID PRN PRN Reason: Constipation Sodium Chloride (Saline Flush) 10 ml FLUSH ASDIRECTED PRN PRN Reason: Keep Vein Open Discontinued Medications Enoxaparin Sodium (Lovenox) 40 mg SUBCUT DAILY [facility] Last Admin: 02/28/18 00:53 Dose: 40 mg Sodium Chloride (Normal Saline) 1,000 mls @ 1,000 mls/hr IV ASDIRECTED [facility] Stop: 02/28/18 00:15 Last Admin: 02/27/18 22:56 Dose: 1,000 mls/hr Ceftriaxone Sodium 1 gm/ (Sodium Chloride) 50 mls @ 100 mls/hr IV ONETIME ONE Stop: 02/27/18 23:07 Last Admin: 02/27/18 22:56 Dose: 100 mls/hr Levofloxacin/Dextrose 500 mg/ (Premix) 100 mls @ 100 mls/hr IV ONETIME ONE Stop: 02/27/18 23:38 Last Admin: 02/27/18 23:22 Dose: 100 mls/hr Lactated Ringer's (Ringers, Lactated) 1,000 mls @ 250 mls/hr IV ASDIRECTED [facility] Stop: 02/28/18 04:16 Last Admin: 02/28/18 00:57 Dose: 250 mls/hr Lactated Ringer's (Ringers, Lactated) 1,000 mls @ 125 mls/hr IV ASDIRECTED [facility] Stop: 02/28/18 03:45 Lactated Ringer's (Ringers, Lactated) 1,000 mls @ 125 mls/hr IV ASDIRECTED [facility] Last Admin: 02/28/18 06:05 Dose: 125 mls/hr - Exam Quality Assessment: DVT Prophylaxis General: Alert, No Acute Distress Lungs: Clear to Auscultation, Normal Respiratory Effort Cardiovascular: Regular Rate, Regular Rhythm, No Murmurs GI/Abdominal Exam: Soft, Non-Tender, No Organomegaly, No Distention Extremities: Non-Tender, No Pedal Edema Skin: Warm, Dry, Intact - Problem List Review Problem List Initiated/Reviewed/Updated: Yes - My Orders Last 24 Hours: My Active Orders 02/27/18 23:46 Resuscitation Status Routine 02/28/18 00:00 cefTRIAXone [Rocephin] 1 gm Sodium Chloride 0.9% [Normal Saline] 50 ml IV Q24H 02/28/18 00:15 Patient Status [ADT] Routine Ambulate [RC] QID Height and Weight [RC] DAILY Intake and Output [RC] QSHIFT Notify Provider Vital Signs [RC] .PRN Oxygen Therapy [RC] PRN Pulse Oximetry [RC] CONTINUOUS Up With Assistance [RC] ASDIRECTED Up to Chair [RC] QID Vital Signs [RC] Q4H Acetaminophen [Tylenol] 650 mg PO Q4H PRN Docusate Sodium/Sennosides [Senna Plus] 1 tab PO BID PRN Magnesium Hydroxide [Milk of Magnesia] 30 ml PO Q12H PRN Ondansetron [Zofran] 4 mg IV Q4H PRN Polyethylene Glycol 3350 [MiraLAX] 17 gm PO DAILY PRN Sodium Chloride 0.9% [Saline Flush] 10 ml FLUSH ASDIRECTED PRN chlorproMAZINE [Thorazine] 100 mg IM BID PRN chlorproMAZINE [Thorazine] 100 mg PO Q3H PRN diphenhydrAMINE [Benadryl] 25 mg PO Q4H PRN oxyCODONE 5 mg PO Q4H PRN Peripheral IV Insertion Adult [OM.PC] Routine 02/28/18 00:40 INFLUENZA A+B AG SCREEN [RM] Stat 02/28/18 00:45 ClonazePAM [KlonoPIN] 0.5 mg PO TID PRN risperiDONE [RisperiDAL] 2 mg PO BID 02/28/18 01:00 Azithromycin [Zithromax] 500 mg Sodium Chloride 0.9% [Normal Saline] 250 ml IV Q24H 02/28/18 09:00 ARIPiprazole [Abilify] 30 mg PO DAILY OLANZapine [ZyPREXA] 30 mg PO BID cloNIDine [Catapres] 0.1 mg PO Q12H 02/28/18 11:52 Convert IV to Saline Lock [OM.PC] Routine 02/28/18 21:00 Enoxaparin [Lovenox] 40 mg SUBCUT BEDTIME 02/28/18 Lunch Mechanical Soft Diet [DIET] - Plan Plan:: ASSESSMENT AND PLAN LEFT LUNG PNEUMONIA- stable since admission, lactic acid level was normal and influenza antigens negative -Blood cultures pending - supplemental oxygen as needed -IV ceftriaxone and azithromycin FOLLICULAR LYMPHOMA-status post first course of chemotherapy with good result and no evidence of residual disease on PET scan. No evidence of current neutropenia or significant immune compromise -outpatient follow-up with oncology CHRONIC SCHIZOPHRENIA -continue outpatient medical regimen MAINTENANCE ISSUES -DVT prophylaxis; Lovenox 40 mg subcutaneous daily -GI prophylaxis; not indicated -Rojas catheter; not indicated -Nutrition; regular diet -Nicotine dependence;Not required CODE STATUS- DNR/DNI ADMISSION STATUS-patient will be admitted to inpatient status, expect at least a 2 night hospital stay for evaluation and management of problems as outlined above. At the time of this admission I do not reasonably expected evaluation and management of this problem will require more than a 96 hour hospital stay. DISPOSITION-anticipate discharge to home after the hospital stay. PRIMARY CARE PROVIDER-
[2018-02-28] MEDS: chlorproMAZINE 25 MG Tab PO PRN (21:43)
[2018-02-28] MEDS: Enoxaparin 40 MG/0.4 ML Syringe SUBCUT SCH (21:47)
[2018-03-01] MEDS: cefTRIAXone 1 GM in Sodium Chloride 0.9% 50 ML IV SCH (00:42)
[2018-03-01] MEDS: Azithromycin 500 MG in Sodium Chloride 0.9% 250 ML IV SCH (00:45)
[2018-03-01] MEDS: chlorproMAZINE 25 MG Tab PO PRN (02:59)
[2018-03-01] MEDS: risperiDONE 1 MG Tab PO SCH (09:49)
[2018-03-01] MEDS: OLANZapine 5 MG Tab PO SCH (09:50)
[2018-03-01] MEDS: cloNIDine 0.1 MG Tab PO SCH ×2 (12:53→16:20)
[2018-03-01] MEDS: ARIPiprazole 10 MG Tab PO SCH ×2 (12:53→16:20)
--- NOTE | 2018-03-01 15:08 | PCM.PN ---
- General Info Date of Service: 03/01/18 Subjective Update: Mr. Mary has been stable medically over the past 24 hours, no recurrent temperature elevations or any evidence of respiratory compromise. He has had some ongoing difficulty with urinary retention. The biggest issue over the past 24 hours has been extreme agitation requiring use of regular doses of IM Thorazine. He has been at times very agitated and aggressive, earlier this morning nursing staff had to call law-enforcement to help control him. He has been in 4 point restraints and despite ongoing use of Thorazine has remained intermittently very agitated. Because of his agitation and underlying schizophrenia he's unable to provide information concerning symptoms or review of systems. - Patient Data Vitals - Most Recent: Last Vital Signs Temp 98.6 F 03/01/18 15:01 Pulse 133 H 03/01/18 15:01 Resp 16 03/01/18 12:55 BP 115/82 03/01/18 15:01 Pulse Ox 100 03/01/18 12:55 Weight - Most Recent: 162 lb 11.2 oz I&O - Last 24 Hours: Intake & Output 03/01/18 03/01/18 03/01/18 06:59 14:59 22:59 Output Total 1000 Balance -1000 Lab Results Last 24 Hours: Laboratory Results - last 24 hr 03/01/18 Range/Units 12:33 Urine Color Yellow Urine Appearance Slightly cloudy Urine pH 5.0 (4.5-8.0) Ur Specific [place] 1.020 (1.008-1.030) Urine Protein Negative (NEGATIVE) mg/dL Urine Glucose (UA) Normal (NEGATIVE) mg/dL Urine Ketones 50 H (NEGATIVE) mg/dL Urine Occult Blood Negative (NEGATIVE) Urine Nitrite Negative (NEGAITVE) Urine Bilirubin Small (NEGATIVE) Urine Urobilinogen 1 (NORMAL) mg/dL Ur Leukocyte Esterase Negative (NEGATIVE) Urine RBC 0-5 (0-5) Urine WBC 5-10 H (0-5) Ur Epithelial Cells Few Amorphous Sediment Not seen Urine Bacteria Not seen Urine Mucus Many Giovanny Results Last 24 Hours: Microbiology 02/27/18 22:15 Aerobic Blood Culture - Preliminary Blood - Venous - Lab Draw NO GROWTH AFTER 1 DAY Anaerobic Blood Culture - Preliminary NO GROWTH AFTER 1 DAY 02/27/18 22:15 Aerobic Blood Culture - Preliminary Blood - Venous NO GROWTH AFTER 1 DAY Anaerobic Blood Culture - Preliminary NO GROWTH AFTER 1 DAY Med Orders - Current: Current Medications Acetaminophen (Tylenol) 650 mg PO Q4H PRN PRN Reason: Pain (Mild 1-3)/fever Aripiprazole (Abilify) 30 mg PO DAILY [facility] Last Admin: 02/28/18 09:39 Dose: 30 mg Chlorpromazine HCl (Thorazine) 100 mg IM BID PRN PRN Reason: AGITATION Last Admin: 03/01/18 07:32 Dose: 100 mg Clonazepam (Klonopin) 0.5 mg PO TID PRN PRN Reason: Anxiety Clonidine HCl (Catapres) 0.1 mg PO Q12H [facility] Last Admin: 02/28/18 21:43 Dose: 0.1 mg Diphenhydramine HCl (Benadryl) 25 mg PO Q4H PRN PRN Reason: drooling Enoxaparin Sodium (Lovenox) 40 mg SUBCUT BEDTIME [facility] Last Admin: 02/28/18 21:47 Dose: 40 mg Heparin Sodium (Porcine) (Heparin Lock Flush 100 Units/Ml) 500 units FLUSH ASDIRECTED PRN PRN Reason: IV Use Last Admin: 03/01/18 12:51 Dose: 500 units Magnesium Hydroxide (Milk Of Magnesia) 30 ml PO Q12H PRN PRN Reason: Constipation Olanzapine (Zyprexa) 30 mg PO BID [facility] Last Admin: 03/01/18 09:50 Dose: 30 mg Oxycodone HCl (Oxycodone) 5 mg PO Q4H PRN PRN Reason: Pain (moderate 4-6) Chlorpromazine 100mg ((Ptom)) 0 each PO Q3H PRN PRN Reason: AGITATION Polyethylene Glycol (Miralax) 17 gm PO DAILY PRN PRN Reason: Constipation Risperidone (Risperidal) 2 mg PO BID [facility] Last Admin: 03/01/18 09:49 Dose: 2 mg Senna/Docusate Sodium (Senna Plus) 1 tab PO BID PRN PRN Reason: Constipation Discontinued Medications Chlorpromazine HCl (Thorazine) 100 mg PO Q3H PRN PRN Reason: Agitation Last Admin: 03/01/18 02:59 Dose: 100 mg Chlorpromazine HCl (Thorazine) 100 mg IM BID PRN PRN Reason: aggitation Last Admin: 02/28/18 18:15 Dose: 100 mg Chlorpromazine HCl (Thorazine) 100 mg IM ONETIME ONE Stop: 03/01/18 10:16 Last Admin: 03/01/18 10:08 Dose: 100 mg Chlorpromazine HCl (Thorazine) 100 mg IM ONETIME ONE Stop: 03/01/18 14:21 Last Admin: 03/01/18 14:15 Dose: 100 mg Enoxaparin Sodium (Lovenox) 40 mg SUBCUT DAILY [facility] Last Admin: 02/28/18 00:53 Dose: 40 mg Heparin Sodium (Porcine) (Heparin Lock Flush 100 Units/Ml) Confirm Administered Dose 500 units .ROUTE .STK-MED ONE Stop: 02/28/18 13:13 Last Admin: 02/28/18 15:04 Dose: Not Given Sodium Chloride (Normal Saline) 1,000 mls @ 1,000 mls/hr IV ASDIRECTED [facility] Stop: 02/28/18 00:15 Last Admin: 02/27/18 22:56 Dose: 1,000 mls/hr Ceftriaxone Sodium 1 gm/ (Sodium Chloride) 50 mls @ 100 mls/hr IV ONETIME ONE Stop: 02/27/18 23:07 Last Admin: 02/27/18 22:56 Dose: 100 mls/hr Levofloxacin/Dextrose 500 mg/ (Premix) 100 mls @ 100 mls/hr IV ONETIME ONE Stop: 02/27/18 23:38 Last Admin: 02/27/18 23:22 Dose: 100 mls/hr Azithromycin 500 mg/ Sodium (Chloride) 250 mls @ 250 mls/hr IV Q24H [facility] Last Admin: 03/01/18 00:45 Dose: 250 mls/hr Ceftriaxone Sodium 1 gm/ (Sodium Chloride) 50 mls @ 100 mls/hr IV Q24H [facility] Last Admin: 03/01/18 00:42 Dose: 100 mls/hr Lactated Ringer's (Ringers, Lactated) 1,000 mls @ 250 mls/hr IV ASDIRECTED [facility] Stop: 02/28/18 04:16 Last Admin: 02/28/18 00:57 Dose: 250 mls/hr Lactated Ringer's (Ringers, Lactated) 1,000 mls @ 125 mls/hr IV ASDIRECTED [facility] Stop: 04/19/18 03:45 Lactated Ringer's (Ringers, Lactated) 1,000 mls @ 125 mls/hr IV ASDIRECTED [facility] Last Admin: 02/28/18 06:05 Dose: 125 mls/hr Ondansetron HCl (Zofran) 4 mg IV Q4H PRN PRN Reason: Nausea/Vomiting Sodium Chloride (Saline Flush) 10 ml FLUSH ASDIRECTED PRN PRN Reason: Keep Vein Open Last Admin: 03/01/18 02:22 Dose: 10 ml - Exam General: Alert, Cooperative, Severe Distress. No: Oriented Lungs: Clear to Auscultation, Normal Respiratory Effort Cardiovascular: Regular Rate, Regular Rhythm, No Murmurs GI/Abdominal Exam: Soft, Non-Tender, No Organomegaly, No Distention Extremities: Non-Tender, No Pedal Edema Skin: Warm, Dry, Intact - Problem List Review Problem List Initiated/Reviewed/Updated: Yes - My Orders Last 24 Hours: My Active Orders 02/28/18 21:00 Enoxaparin [Lovenox] 40 mg SUBCUT BEDTIME 03/01/18 07:19 chlorproMAZINE [Thorazine] 100 mg IM BID PRN 03/01/18 08:19 Initiate Restraint Protocol [RC] BID Restraint Initiate Non-VIOL/Non-SD [OM.PC] Routine 03/01/18 09:15 Insert Urinary Catheter [OM.PC] Q24H 03/01/18 12:31 Patient's Own Medication [Ptom] 0 each PO Q3H PRN 03/01/18 12:33 UA W/MICROSCOPIC [URIN] Routine - Plan Plan:: ASSESSMENT AND PLAN BRONCHITIS- stable since admission with no significant respiratory compromise or fever -Blood cultures pending - supplemental oxygen as needed -Doxycycline 100 mg by mouth twice a day FOLLICULAR LYMPHOMA-status post first course of chemotherapy with good result and no evidence of residual disease on PET scan. No evidence of current neutropenia or significant immune compromise -outpatient follow-up with oncology URINARY RETENTION-has required intermittent straight catheter for management, chronic problem -Continue use of intermittent straight catheter as needed CHRONIC SCHIZOPHRENIA-extreme agitation with aggressive behavior over the past 24 hours -continue outpatient medical regimen -Continue intermittent use of Thorazine -Transfer to inpatient psychiatric facility as soon as possible MAINTENANCE ISSUES -DVT prophylaxis; Lovenox 40 mg subcutaneous daily -GI prophylaxis; not indicated -Rojas catheter; not indicated -Nutrition; regular diet -Nicotine dependence;Not required CODE STATUS- DNR/DNI ADMISSION STATUS-patient will be admitted to inpatient status, expect at least a 2 night hospital stay for evaluation and management of problems as outlined above. At the time of this admission I do not reasonably expected evaluation and management of this problem will require more than a 96 hour hospital stay. DISPOSITION-anticipate discharge to home after the hospital stay. PRIMARY CARE PROVIDER-
[2018-03-01] MEDS ORDERED: Sodium Chloride 0.9% 1,000 ML IV SCH (17:15)
[2018-03-01] MEDS: CHLORPROMAZINE 100 MG PO SCH ×2 (17:31→21:38)
[2018-03-01] MEDS: Tamsulosin 0.4 MG Cap.ER PO SCH (17:32)
[2018-03-01] MEDS ORDERED: Finasteride 5 MG Tab PO SCH (21:00)
[2018-03-01] MEDS: Enoxaparin 40 MG/0.4 ML Syringe SUBCUT SCH (21:27)
[2018-03-02] MEDS: CHLORPROMAZINE 100 MG PO PRN ×2 (02:20→11:19)
[2018-03-02] MEDS: Doxycycline 100 MG Cap PO SCH ×2 (02:29→09:10)
[2018-03-02] MEDS: ClonazePAM 0.5 MG Tab PO PRN ×2 (02:29→10:56)
[2018-03-02] MEDS: OLANZapine 5 MG Tab PO SCH ×2 (02:29→09:10)
[2018-03-02] MEDS: cloNIDine 0.1 MG Tab PO SCH ×2 (02:30→09:10)
[2018-03-02] MEDS ORDERED: Finasteride 5 MG Tab PO ONE (02:30)
[2018-03-02] MEDS ORDERED: CHLORPROMAZINE 25 MG/ML IM PRN (08:07)
[2018-03-02] MEDS: ARIPiprazole 10 MG Tab PO SCH (09:10)
[2018-03-02] MEDS: Tamsulosin 0.4 MG Cap.ER PO SCH ×2 (09:10→17:02)
[2018-03-02] MEDS: CHLORPROMAZINE 100 MG PO SCH ×3 (09:11→17:13)
[2018-03-02] MEDS ORDERED: Sodium Chloride 0.9% 1,000 ML IV SCH ×2 (11:15→14:15)
--- NOTE | 2018-03-02 11:47 | PCM.PN ---
- General Info Date of Service: 03/02/18 Subjective Update: Mr. Mary is continued to experience agitation, oral intake last night was fairly good but minimal since then and urine output has been dropping off. Rojas catheter is in place for management of bladder outlet obstruction and urinary retention. Vital signs have been stable and he has remained afebrile. Because of confusion and agitation he is unable to provide significant information concerning symptoms or review of systems. - Patient Data Vitals - Most Recent: Last Vital Signs Temp 98.1 F 03/02/18 11:30 Pulse 103 H 03/02/18 11:30 Resp 16 03/02/18 11:30 BP 107/71 03/02/18 11:30 Pulse Ox 99 03/02/18 11:30 Weight - Most Recent: 162 lb 11.2 oz I&O - Last 24 Hours: Intake & Output 03/01/18 03/02/18 03/02/18 22:59 06:59 14:59 Intake Total 900 Output Total 300 350 75 Balance 600 -350 -75 Lab Results Last 24 Hours: Laboratory Results - last 24 hr 03/01/18 03/02/18 03/02/18 Range/Units 12:33 05:32 05:32 WBC 10.0 (4.5-11.0) K/uL RBC 4.07 L (4.30-5.90) M/uL Hgb 12.6 (12.0-15.0) g/dL Hct 37.2 L (40.0-54.0) % MCV 91 (80-98) fL MCH 31 (27-31) pg MCHC 34 (32-36) % Plt Count 180 (150-400) K/uL Neut % (Auto) 83 H (36-66) % Lymph % (Auto) 8 L (24-44) % [place] % (Auto) 9 H (2-6) % Eos % (Auto) 0 L (2-4) % Baso % (Auto) 0 (0-1) % Sodium 141 (140-148) mmol/L Potassium 3.8 (3.6-5.2) mmol/L Chloride 105 (100-108) mmol/L Carbon Dioxide 24 (21-32) mmol/L Anion Gap 11.9 (5.0-14.0) mmol/L BUN 12 (7-18) mg/dL Creatinine 0.8 (0.8-1.3) mg/dL Est Cr Clr Drug Dosing 90.51 mL/min Estimated GFR (MDRD) > 60 (>60) Glucose 98 (74-106) mg/dL Calcium 8.2 L (8.5-10.1) mg/dL Total Bilirubin 1.9 H D (0.2-1.0) mg/dL AST 60 H D (15-37) U/L ALT 26 (12-78) U/L Alkaline Phosphatase 115 (46-116) U/L Total Protein 5.5 L (6.4-8.2) g/dL Albumin 3.0 L (3.4-5.0) g/dL Globulin 2.5 (2.3-3.5) g/dL Albumin/Globulin Ratio 1.2 (1.2-2.2) Urine Color Yellow Urine Appearance Slightly cloudy Urine pH 5.0 (4.5-8.0) Ur Specific Mal[place] 1.020 (1.008-1.030) Urine Protein Negative (NEGATIVE) mg/dL Urine Glucose (UA) Normal (NEGATIVE) mg/dL Urine Ketones 50 H (NEGATIVE) mg/dL Urine Occult Blood Negative (NEGATIVE) Urine Nitrite Negative (NEGAITVE) Urine Bilirubin Small (NEGATIVE) Urine Urobilinogen 1 (NORMAL) mg/dL Ur Leukocyte Esterase Negative (NEGATIVE) Urine RBC 0-5 (0-5) Urine WBC 5-10 H (0-5) Ur Epithelial Cells Few Amorphous Sediment Not seen Urine Bacteria Not seen Urine Mucus Many Giovanny Results Last 24 Hours: Microbiology 02/27/18 22:15 Aerobic Blood Culture - Preliminary Blood - Venous - Lab Draw NO GROWTH AFTER 2 DAYS Anaerobic Blood Culture - Preliminary NO GROWTH AFTER 2 DAYS 02/27/18 22:15 Aerobic Blood Culture - Preliminary Blood - Venous NO GROWTH AFTER 2 DAYS Anaerobic Blood Culture - Preliminary NO GROWTH AFTER 2 DAYS Med Orders - Current: Current Medications Acetaminophen (Tylenol) 650 mg PO Q4H PRN PRN Reason: Pain (Mild 1-3)/fever Aripiprazole (Abilify) 30 mg PO DAILY [facility] Last Admin: 03/02/18 09:10 Dose: 30 mg Clonazepam (Klonopin) 0.5 mg PO TID PRN PRN Reason: Anxiety Last Admin: 03/02/18 10:56 Dose: 0.5 mg Clonidine HCl (Catapres) 0.1 mg PO Q12H [facility] Last Admin: 03/02/18 09:10 Dose: 0.1 mg Diphenhydramine HCl (Benadryl) 25 mg PO Q4H PRN PRN Reason: drooling Divalproex Sodium (Divalproex Sodium) 250 mg PO BIDMEALS [facility] Doxycycline Hyclate (Vibramycin) 100 mg PO BID [facility] Last Admin: 03/02/18 09:10 Dose: 100 mg Enoxaparin Sodium (Lovenox) 40 mg SUBCUT BEDTIME [facility] Last Admin: 03/01/18 21:27 Dose: 40 mg Finasteride (Proscar) 5 mg PO BEDTIME [facility] Heparin Sodium (Porcine) (Heparin Lock Flush 100 Units/Ml) 500 units FLUSH ASDIRECTED PRN PRN Reason: IV Use Last Admin: 03/01/18 12:51 Dose: 500 units Sodium Chloride (Normal Saline) 1,000 mls @ 125 mls/hr IV ASDIRECTED [facility] Sodium Chloride (Normal Saline) 1,000 mls @ 500 mls/hr IV ASDIRECTED [facility] Stop: 03/02/18 14:16 Sodium Chloride (Normal Saline) 1,000 mls @ 100 mls/hr IV ASDIRECTED [facility] Magnesium Hydroxide (Milk Of Magnesia) 30 ml PO Q12H PRN PRN Reason: Constipation Melatonin (Melatonin) 9 mg PO BEDTIME [facility] Olanzapine (Zyprexa) 30 mg PO BID [facility] Last Admin: 03/02/18 09:10 Dose: 30 mg Oxycodone HCl (Oxycodone) 5 mg PO Q4H PRN PRN Reason: Pain (moderate 4-6) Chlorpromazine 100mg ((Ptom)) 0 each PO Q3H PRN PRN Reason: AGITATION Last Admin: 03/02/18 11:19 Dose: 1 each Chlorpromazine 100mg ((Ptom)) 0 each PO TID [facility] Last Admin: 03/02/18 09:11 Dose: 1 each Chlorpromazine 25mg/ (Ml Inj (Ptom)) 0 each IM Q2H PRN PRN Reason: AGITATION Polyethylene Glycol (Miralax) 17 gm PO DAILY PRN PRN Reason: Constipation Senna/Docusate Sodium (Senna Plus) 1 tab PO BID PRN PRN Reason: Constipation [facility] Admin: 03/02/18 09:10 Dose: 0.4 mg Discontinued Medications Chlorpromazine HCl (Thorazine) 100 mg PO Q3H PRN PRN Reason: Agitation Last Admin: 03/01/18 02:59 Dose: 100 mg Chlorpromazine HCl (Thorazine) 100 mg IM BID PRN PRN Reason: aggitation Last Admin: 02/28/18 18:15 Dose: 100 mg Chlorpromazine HCl (Thorazine) 100 mg IM BID PRN PRN Reason: AGITATION Last Admin: 03/01/18 07:32 Dose: 100 mg Chlorpromazine HCl (Thorazine) 100 mg IM ONETIME ONE Stop: 03/01/18 10:16 Last Admin: 03/01/18 10:08 Dose: 100 mg Chlorpromazine HCl (Thorazine) 100 mg IM ONETIME ONE Stop: 03/01/18 14:21 Last Admin: 03/01/18 14:15 Dose: 100 mg Chlorpromazine HCl (Thorazine) 100 mg IM ONETIME ONE Stop: 03/01/18 15:21 Last Admin: 03/01/18 15:16 Dose: 100 mg Chlorpromazine HCl (Thorazine) 100 mg IM Q2H PRN PRN Reason: AGITATION Last Admin: 03/02/18 05:11 Dose: 100 mg Enoxaparin Sodium (Lovenox) 40 mg SUBCUT DAILY [facility] Last Admin: 02/28/18 00:53 Dose: 40 mg Finasteride (Proscar) 5 mg PO ONETIME ONE Stop: 03/02/18 02:31 Last Admin: 03/02/18 02:30 Dose: 5 mg Heparin Sodium (Porcine) (Heparin Lock Flush 100 Units/Ml) Confirm Administered Dose 500 units .ROUTE .STK-MED ONE Stop: 02/28/18 13:13 Last Admin: 02/28/18 15:04 Dose: Not Given Sodium Chloride (Normal Saline) 1,000 mls @ 1,000 mls/hr IV ASDIRECTED [facility] Stop: 02/28/18 00:15 Last Admin: 02/27/18 22:56 Dose: 1,000 mls/hr Ceftriaxone Sodium 1 gm/ (Sodium Chloride) 50 mls @ 100 mls/hr IV ONETIME ONE Stop: 02/27/18 23:07 Last Admin: 02/27/18 22:56 Dose: 100 mls/hr Levofloxacin/Dextrose 500 mg/ (Premix) 100 mls @ 100 mls/hr IV ONETIME ONE Stop: 02/27/18 23:38 Last Admin: 02/27/18 23:22 Dose: 100 mls/hr Azithromycin 500 mg/ Sodium (Chloride) 250 mls @ 250 mls/hr IV Q24H [facility] Last Admin: 03/01/18 00:45 Dose: 250 mls/hr Ceftriaxone Sodium 1 gm/ (Sodium Chloride) 50 mls @ 100 mls/hr IV Q24H [facility] Last Admin: 03/01/18 00:42 Dose: 100 mls/hr Lactated Ringer's (Ringers, Lactated) 1,000 mls @ 250 mls/hr IV ASDIRECTED [facility] Stop: 02/28/18 04:16 Last Admin: 02/28/18 00:57 Dose: 250 mls/hr Lactated Ringer's (Ringers, Lactated) 1,000 mls @ 125 mls/hr IV ASDIRECTED [facility] Stop: 02/28/18 03:45 Lactated Ringer's (Ringers, Lactated) 1,000 mls @ 125 mls/hr IV ASDIRECTED [facility] Last Admin: 02/28/18 06:05 Dose: 125 mls/hr Ondansetron HCl (Zofran) 4 mg IV Q4H PRN PRN Reason: Nausea/Vomiting Risperidone (Risperidal) 2 mg PO BID [facility] Last Admin: 03/01/18 09:49 Dose: 2 mg Sodium Chloride (Saline Flush) 10 ml FLUSH ASDIRECTED PRN PRN Reason: Keep Vein Open Last Admin: 03/01/18 02:22 Dose: 10 ml - Exam General: Moderate Distress Lungs: Clear to Auscultation, Normal Respiratory Effort Cardiovascular: Regular Rate, Regular Rhythm GI/Abdominal Exam: Soft, Non-Tender, No Organomegaly, No Distention Extremities: Non-Tender, No Pedal Edema Skin: Warm, Dry Psy/Mental Status: Agitated, Hallucinations - Problem List Review Problem List Initiated/Reviewed/Updated: Yes - My Orders Last 24 Hours: My Active Orders 03/01/18 12:31 Patient's Own Medication [Ptom] 0 each PO Q3H PRN 03/01/18 12:33 UA W/MICROSCOPIC [URIN] Routine 03/01/18 16:26 Urinary Catheter Assessment [RC] ASDIRECTED 03/01/18 16:30 Insert Rojas Catheter [Insert Urinary Catheter] [OM.PC] Q24H 03/01/18 17:02 Patient's Own Medication [Ptom] 0 each PO TID 03/01/18 17:15 Sodium Chloride 0.9% [Normal Saline] 1,000 ml IV ASDIRECTED 03/01/18 17:30 Tamsulosin [Flomax] 0.4 mg PO BIDPC 03/01/18 21:00 Doxycycline [Vibramycin] 100 mg PO BID 03/02/18 08:07 Patient's Own Medication [Ptom] 0 each IM Q2H PRN 03/02/18 11:15 Sodium Chloride 0.9% [Normal Saline] 1,000 ml IV ASDIRECTED 03/02/18 11:38 Divalproex Sodium 250 mg PO BIDMEALS 03/02/18 14:15 Sodium Chloride 0.9% [Normal Saline] 1,000 ml IV ASDIRECTED 03/02/18 21:00 Finasteride [Proscar] 5 mg PO BEDTIME Melatonin 9 mg PO BEDTIME - Plan Plan:: ASSESSMENT AND PLAN BRONCHITIS- stable since admission with no significant respiratory compromise or fever -Blood cultures negative thus far - supplemental oxygen as needed -Doxycycline 100 mg by mouth twice a day FOLLICULAR LYMPHOMA-status post first course of chemotherapy with good result and no evidence of residual disease on PET scan. No evidence of current neutropenia or significant immune compromise -outpatient follow-up with oncology URINARY Rojas catheter in place CHRONIC SCHIZOPHRENIA-extreme agitation with aggressive behavior over the past 48 hours -Risperdal discontinued -Melatonin 9 mg by mouth daily at bedtime -Depakote 250 mg by mouth -Continue intermittent use of Thorazine -Transfer to inpatient psychiatric facility as soon as possible MAINTENANCE ISSUES -DVT prophylaxis; Lovenox 40 mg subcutaneous daily -GI prophylaxis; not indicated -Rojas catheter; not indicated -Nutrition; regular diet -Nicotine dependence;Not required CODE STATUS- DNR/DNI ADMISSION STATUS-patient will be admitted to inpatient status, expect at least a 2 night hospital stay for evaluation and management of problems as outlined above. At the time of this admission I do not reasonably expected evaluation and management of this problem will require more than a 96 hour hospital stay. DISPOSITION-anticipate discharge to home after the hospital stay. PRIMARY CARE PROVIDER-
[2018-03-02] MEDS ORDERED: chlorproMAZINE 50 MG/2 ML Amp IM PRN (13:42)
[2018-03-02] MEDS: Divalproex Sodium Delayed-Release 250 MG Tab.CR PO SCH ×2 (16:18→17:02)
[2018-03-03] MEDS: Enoxaparin 40 MG/0.4 ML Syringe SUBCUT SCH (05:28)
[2018-03-03] MEDS: CHLORPROMAZINE 100 MG PO SCH ×3 (05:28→17:53)
[2018-03-03] MEDS: Melatonin 3 MG Tab PO SCH (05:28)
[2018-03-03] MEDS: Finasteride 5 MG Tab PO SCH (05:28)
[2018-03-03] MEDS: Doxycycline 100 MG Cap PO SCH ×2 (05:28→10:11)
[2018-03-03] MEDS: OLANZapine 5 MG Tab PO SCH ×2 (05:29→10:10)
[2018-03-03] MEDS: cloNIDine 0.1 MG Tab PO SCH ×2 (05:55→10:10)
[2018-03-03] MEDS: Divalproex Sodium Delayed-Release 250 MG Tab.CR PO SCH ×2 (10:09→17:53)
[2018-03-03] MEDS: ARIPiprazole 10 MG Tab PO SCH (10:10)
[2018-03-03] MEDS: Tamsulosin 0.4 MG Cap.ER PO SCH ×2 (10:10→17:53)
--- NOTE | 2018-03-03 12:25 | PCM.PN ---
- General Info Date of Service: 03/03/18 Subjective Update: Mr. Mary has been more stable over the past 24 hours, much less agitation, slept well through the night. He has required only minimal use of Thorazine in the last 24 hours. He is currently noncommunicative and unable to provide meaningful history concerning symptoms or review of systems Functional Status: Reports: Tolerating Diet. Denies: Urinating - Patient Data Vitals - Most Recent: Last Vital Signs Temp 97.1 F 03/03/18 10:00 Pulse 118 H 03/03/18 10:00 Resp 16 03/03/18 10:00 BP 127/70 03/03/18 10:10 Pulse Ox 97 03/03/18 10:00 Weight - Most Recent: 162 lb 11.2 oz I&O - Last 24 Hours: Intake & Output 03/02/18 03/03/18 03/03/18 22:59 06:59 14:59 Intake Total 0071 938 [id number] Output Total 150 300 0 Balance 9019 714 [id number] Giovanny Results Last 24 Hours: Microbiology 02/27/18 22:15 Aerobic Blood Culture - Preliminary Blood - Venous - Lab Draw NO GROWTH AFTER 3 DAYS Anaerobic Blood Culture - Preliminary NO GROWTH AFTER 3 DAYS 02/27/18 22:15 Aerobic Blood Culture - Preliminary Blood - Venous NO GROWTH AFTER 3 DAYS Anaerobic Blood Culture - Preliminary NO GROWTH AFTER 3 DAYS Med Orders - Current: Current Medications Acetaminophen (Tylenol) 650 mg PO Q4H PRN PRN Reason: Pain (Mild 1-3)/fever Aripiprazole (Abilify) 30 mg PO DAILY [facility] Last Admin: 03/03/18 10:10 Dose: 30 mg Chlorpromazine HCl (Thorazine) 100 mg IM Q2H PRN PRN Reason: AGITATION Clonazepam (Klonopin) 0.5 mg PO TID PRN PRN Reason: Anxiety Last Admin: 03/02/18 10:56 Dose: 0.5 mg Clonidine HCl (Catapres) 0.1 mg PO Q12H [facility] Last Admin: 03/03/18 10:10 Dose: 0.1 mg Diphenhydramine HCl (Benadryl) 25 mg PO Q4H PRN PRN Reason: drooling Divalproex Sodium (Divalproex Sodium) 250 mg PO BIDMEALS [facility] Last Admin: 03/03/18 10:09 Dose: 250 mg Doxycycline Hyclate (Vibramycin) 100 mg PO BID [facility] Last Admin: 03/03/18 10:11 Dose: 100 mg Enoxaparin Sodium (Lovenox) 40 mg SUBCUT BEDTIME [facility] Last Admin: 03/03/18 05:28 Dose: Not Given Finasteride (Proscar) 5 mg PO BEDTIME [facility] Last Admin: 03/03/18 05:28 Dose: Not Given Heparin Sodium (Porcine) (Heparin Lock Flush 100 Units/Ml) 500 units FLUSH ASDIRECTED PRN PRN Reason: IV Use Last Admin: 03/01/18 12:51 Dose: 500 units Sodium Chloride (Normal Saline) 1,000 mls @ 100 mls/hr IV ASDIRECTED [facility] Stop: 03/04/18 12:31 Magnesium Hydroxide (Milk Of Magnesia) 30 ml PO Q12H PRN PRN Reason: Constipation Melatonin (Melatonin) 9 mg PO BEDTIME [facility] Last Admin: 03/03/18 05:28 Dose: Not Given Olanzapine (Zyprexa) 30 mg PO BID [facility] Last Admin: 03/03/18 10:10 Dose: 30 mg Oxycodone HCl (Oxycodone) 5 mg PO Q4H PRN PRN Reason: Pain (moderate 4-6) Chlorpromazine 100mg ((Ptom)) 0 each PO Q3H PRN PRN Reason: AGITATION Last Admin: 03/02/18 11:19 Dose: 1 each Chlorpromazine 100mg ((Ptom)) 0 each PO TID [facility] Last Admin: 03/03/18 10:11 Dose: 1 each Polyethylene Glycol (Miralax) 17 gm PO DAILY PRN PRN Reason: Constipation Last Admin: 03/03/18 10:09 Dose: 17 gm Senna/Docusate Sodium (Senna Plus) 1 tab PO BID PRN PRN Reason: Constipation Last Admin: 03/03/18 10:10 Dose: 1 tab [facility] Last Admin: 03/03/18 10:10 Dose: 0.4 mg Discontinued Medications Chlorpromazine HCl (Thorazine) 100 mg PO Q3H PRN PRN Reason: Agitation Last Admin: 03/01/18 02:59 Dose: 100 mg Chlorpromazine HCl (Thorazine) 100 mg IM BID PRN PRN Reason: aggitation Last Admin: 02/28/18 18:15 Dose: 100 mg Chlorpromazine HCl (Thorazine) 100 mg IM BID PRN PRN Reason: AGITATION Last Admin: 03/01/18 07:32 Dose: 100 mg Chlorpromazine HCl (Thorazine) 100 mg IM ONETIME ONE Stop: 03/01/18 10:16 Last Admin: 03/01/18 10:08 Dose: 100 mg Chlorpromazine HCl (Thorazine) 100 mg IM ONETIME ONE Stop: 03/01/18 14:21 Last Admin: 03/01/18 14:15 Dose: 100 mg Chlorpromazine HCl (Thorazine) 100 mg IM ONETIME ONE Stop: 03/01/18 15:21 Last Admin: 03/01/18 15:16 Dose: 100 mg Chlorpromazine HCl (Thorazine) 100 mg IM Q2H PRN PRN Reason: AGITATION Last Admin: 03/02/18 05:11 Dose: 100 mg Enoxaparin Sodium (Lovenox) 40 mg SUBCUT DAILY [facility] Last Admin: 02/28/18 00:53 Dose: 40 mg Finasteride (Proscar) 5 mg PO ONETIME ONE Stop: 03/02/18 02:31 Last Admin: 03/02/18 02:30 Dose: 5 mg Heparin Sodium (Porcine) (Heparin Lock Flush 100 Units/Ml) Confirm Administered Dose 500 units .ROUTE .STK-MED ONE Stop: 02/28/18 13:13 Last Admin: 02/28/18 15:04 Dose: Not Given Sodium Chloride (Normal Saline) 1,000 mls @ 1,000 mls/hr IV ASDIRECTED [facility] Stop: 02/28/18 00:15 Last Admin: 02/27/18 22:56 Dose: 1,000 mls/hr Ceftriaxone Sodium 1 gm/ (Sodium Chloride) 50 mls @ 100 mls/hr IV ONETIME ONE Stop: 02/27/18 23:07 Last Admin: 02/27/18 22:56 Dose: 100 mls/hr Levofloxacin/Dextrose 500 mg/ (Premix) 100 mls @ 100 mls/hr IV ONETIME ONE Stop: 02/27/18 23:38 Last Admin: 02/27/18 23:22 Dose: 100 mls/hr Azithromycin 500 mg/ Sodium (Chloride) 250 mls @ 250 mls/hr IV Q24H [facility] Last Admin: 03/01/18 00:45 Dose: 250 mls/hr Ceftriaxone Sodium 1 gm/ (Sodium Chloride) 50 mls @ 100 mls/hr IV Q24H [facility] Last Admin: 03/01/18 00:42 Dose: 100 mls/hr Lactated Ringer's (Ringers, Lactated) 1,000 mls @ 250 mls/hr IV ASDIRECTED [facility] Stop: 02/28/18 04:16 Last Admin: 02/28/18 00:57 Dose: 250 mls/hr Lactated Ringer's (Ringers, Lactated) 1,000 mls @ 125 mls/hr IV ASDIRECTED [facility] Stop: 02/28/18 03:45 Lactated Ringer's (Ringers, Lactated) 1,000 mls @ 125 mls/hr IV ASDIRECTED [facility] Last Admin: 02/28/18 06:05 Dose: 125 mls/hr Sodium Chloride (Normal Saline) 1,000 mls @ 125 mls/hr IV ASDIRECTED [facility] Last Admin: 03/02/18 13:57 Dose: 125 mls/hr Sodium Chloride (Normal Saline) 1,000 mls @ 500 mls/hr IV ASDIRECTED [facility] Stop: 03/02/18 14:16 Last Admin: 03/02/18 12:55 Dose: 500 mls/hr Sodium Chloride (Normal Saline) 1,000 mls @ 100 mls/hr IV ASDIRECTED [facility] Last Admin: 03/02/18 21:42 Dose: 100 mls/hr Ondansetron HCl (Zofran) 4 mg IV Q4H PRN PRN Reason: Nausea/Vomiting Risperidone (Risperidal) 2 mg PO BID [facility] Last Admin: 03/01/18 09:49 Dose: 2 mg Sodium Chloride (Saline Flush) 10 ml FLUSH ASDIRECTED PRN PRN Reason: Keep Vein Open Last Admin: 03/01/18 02:22 Dose: 10 ml - Exam Quality Assessment: DVT Prophylaxis General: Lethargic Lungs: Clear to Auscultation, Normal Respiratory Effort Cardiovascular: Regular Rate, Regular Rhythm, No Murmurs GI/Abdominal Exam: Soft, Non-Tender, No Organomegaly, No Distention Extremities: Non-Tender, No Pedal Edema Skin: Warm, Dry - Problem List Review Problem List Initiated/Reviewed/Updated: Yes - My Orders Last 24 Hours: My Active Orders 03/02/18 11:38 Divalproex Sodium 250 mg PO BIDMEALS 03/02/18 13:42 chlorproMAZINE [Thorazine] 100 mg IM Q2H PRN 03/02/18 21:00 Finasteride [Proscar] 5 mg PO BEDTIME Melatonin 9 mg PO BEDTIME 03/03/18 12:30 Sodium Chloride 0.9% @ 100 MLS/HR(1000ml) Sodium Chloride 0.9% [Normal Saline] 1 ,000 ml IV ASDIRECTED 03/04/18 05:00 CBC WITH AUTO DIFF [HEME] Timed COMPREHENSIVE METABOLIC PN,CMP [CHEM] Timed 03/04/18 07:00 Remove Rojas Catheter [Urinary Catheter Removal] [RC] Per Unit Routine - Plan Plan:: ASSESSMENT AND PLAN BRONCHITIS- stable since admission with no significant respiratory compromise or fever -Blood cultures negative thus far - supplemental oxygen as needed -Doxycycline 100 mg by mouth twice a day FOLLICULAR LYMPHOMA-status post first course of chemotherapy with good result and no evidence of residual disease on PET scan. No evidence of current neutropenia or significant immune compromise -outpatient follow-up with oncology URINARY RETENTION- Rojas catheter in place -Flomax 0.4 milligrams by mouth twice a day -Proscar 5 mg by mouth daily -Attempt to remove Rojas catheter in a.m. CHRONIC behavior significantly improved over the last 24 hours -Risperdal discontinued -Melatonin 9 mg by mouth daily at bedtime -Depakote 250 mg by mouth -Continue current dose of Zyprexa -Continue intermittent use of Thorazine MAINTENANCE ISSUES -DVT prophylaxis; Lovenox 40 mg subcutaneous daily -GI prophylaxis; not indicated -Rojas catheter; not indicated -Nutrition; regular diet -Nicotine dependence;Not required CODE STATUS- DNR/DNI ADMISSION STATUS-patient will be admitted to inpatient status, expect at least a 2 night hospital stay for evaluation and management of problems as outlined above. At the time of this admission I do not reasonably expected evaluation and management of this problem will require more than a 96 hour hospital stay. DISPOSITION-anticipate discharge to home after the hospital stay. PRIMARY CARE PROVIDER-
[2018-03-03] MEDS ORDERED: Sodium Chloride 0.9% 1,000 ML IV SCH ×2 (12:30)
[2018-03-03] MEDS ORDERED: Sodium Chloride 0.9% 500 ML IV SCH ×2 (18:11→19:15)
[2018-03-03] MEDS: Sodium Chloride 0.9% 1,000 ML IV SCH (20:51)
[2018-03-04] MEDS: Enoxaparin 40 MG/0.4 ML Syringe SUBCUT SCH ×3 (04:12→22:07)
[2018-03-04] MEDS: cloNIDine 0.1 MG Tab PO SCH ×4 (04:12→22:08)
[2018-03-04] MEDS: Melatonin 3 MG Tab PO SCH ×3 (04:12→22:09)
[2018-03-04] MEDS: Doxycycline 100 MG Cap PO SCH ×4 (04:13→22:09)
[2018-03-04] MEDS: CHLORPROMAZINE 100 MG PO SCH ×6 (04:13→22:46)
[2018-03-04] MEDS: Finasteride 5 MG Tab PO SCH ×3 (04:13→22:09)
[2018-03-04] MEDS: OLANZapine 5 MG Tab PO SCH ×4 (04:13→22:09)
[2018-03-04] MEDS: Sodium Chloride 0.9% 1,000 ML IV SCH ×3 (04:56→19:37)
[2018-03-04] MEDS: Tamsulosin 0.4 MG Cap.ER PO SCH ×2 (07:53→17:21)
[2018-03-04] MEDS: Divalproex Sodium Delayed-Release 250 MG Tab.CR PO SCH ×2 (11:29→17:21)
[2018-03-04] MEDS: ARIPiprazole 10 MG Tab PO SCH (11:29)
[2018-03-04] MEDS: CHLORPROMAZINE 100 MG PO PRN ×2 (12:31→17:24)
--- NOTE | 2018-03-04 13:47 | PCM.PN ---
- General Info Date of Service: 03/04/18 Functional Status: Reports: Pain Controlled - Review of Systems General: Reports: Weakness Pulmonary: Denies: Shortness of Breath Gastrointestinal: Denies: Abdominal Pain Systems Review Comment:: there were no acute events overnight. Rojas catheter was removed this morning and he has been able to pass small quantities of urine. He was calm and cooperative this morning but agitation has escalated mildly this afternoon. He has not had any fevers. He has not needed any oxygen. Blood tests have been essentially normal. - Patient Data Vitals - Most Recent: Last Vital Signs Temp 36.0 C 03/04/18 11:22 Pulse 114 H 03/04/18 11:22 Resp 18 03/04/18 11:22 BP 139/71 03/04/18 11:30 Pulse Ox 98 03/04/18 11:22 Weight - Most Recent: 73.799 kg I&O - Last 24 Hours: Intake & Output 03/03/18 03/04/18 03/04/18 22:59 06:59 14:59 Intake Total 1558 1167 Output Total 300 300 200 Balance 1258 867 -200 Lab Results Last 24 Hours: Laboratory Results - last 24 hr 03/04/18 03/04/18 Range/Units 05:38 05:38 WBC 7.1 (4.5-11.0) K/uL RBC 3.50 L (4.30-5.90) M/uL Hgb 10.7 L (12.0-15.0) g/dL Hct 32.8 L (40.0-54.0) % MCV 94 (80-98) fL MCH 31 (27-31) pg MCHC 33 (32-36) % Plt Count 162 (150-400) K/uL Neut % (Auto) 81 H (36-66) % Lymph % (Auto) 10 L (24-44) % [place] % (Auto) 9 H (2-6) % Eos % (Auto) 0 L (2-4) % Baso % (Auto) 0 (0-1) % Sodium 144 (140-148) mmol/L Potassium 3.9 (3.6-5.2) mmol/L Chloride 111 H (100-108) mmol/L Carbon Dioxide 26 (21-32) mmol/L Anion Gap 10.9 (5.0-14.0) mmol/L BUN 18 (7-18) mg/dL Creatinine 0.7 L (0.8-1.3) mg/dL Est Cr Clr Drug Dosing 103.44 mL/min Estimated GFR (MDRD) > 60 (>60) Glucose 91 (74-106) mg/dL Calcium 7.6 L (8.5-10.1) mg/dL Total Bilirubin 0.6 D (0.2-1.0) mg/dL AST 24 (15-37) U/L ALT 17 (12-78) U/L Alkaline Phosphatase 81 (46-116) U/L Total Protein 4.4 L (6.4-8.2) g/dL Albumin 2.0 L (3.4-5.0) g/dL Globulin 2.4 (2.3-3.5) g/dL Albumin/Globulin Ratio 0.8 L (1.2-2.2) Giovanny Results Last 24 Hours: Microbiology 02/27/18 22:15 Aerobic Blood Culture - Preliminary Blood - Venous - Lab Draw NO GROWTH AFTER 4 DAYS Anaerobic Blood Culture - Preliminary NO GROWTH AFTER 4 DAYS 02/27/18 22:15 Aerobic Blood Culture - Preliminary Blood - Venous NO GROWTH AFTER 4 DAYS Anaerobic Blood Culture - Preliminary NO GROWTH AFTER 4 DAYS Med Orders - Current: Current Medications Acetaminophen (Tylenol) 650 mg PO Q4H PRN PRN Reason: Pain (Mild 1-3)/fever Aripiprazole (Abilify) 30 mg PO DAILY [facility] Last Admin: 03/04/18 11:29 Dose: 30 mg Chlorpromazine HCl (Thorazine) 100 mg IM Q2H PRN PRN Reason: AGITATION Clonazepam (Klonopin) 0.5 mg PO TID PRN PRN Reason: Anxiety Last Admin: 03/02/18 10:56 Dose: 0.5 mg Clonidine HCl (Catapres) 0.1 mg PO Q12H [facility] Last Admin: 03/04/18 11:30 Dose: 0.1 mg Diphenhydramine HCl (Benadryl) 25 mg PO Q4H PRN PRN Reason: drooling Divalproex Sodium (Divalproex Sodium) 250 mg PO BIDMEALS [facility] Last Admin: 03/04/18 11:29 Dose: 250 mg Doxycycline Hyclate (Vibramycin) 100 mg PO BID [facility] Last Admin: 03/04/18 11:30 Dose: 100 mg Enoxaparin Sodium (Lovenox) 40 mg SUBCUT BEDTIME [facility] Last Admin: 03/04/18 04:12 Dose: Not Given Finasteride (Proscar) 5 mg PO BEDTIME [facility] Last Admin: 03/04/18 04:13 Dose: Not Given Heparin Sodium (Porcine) (Heparin Lock Flush 100 Units/Ml) 500 units FLUSH ASDIRECTED PRN PRN Reason: IV Use Last Admin: 03/01/18 12:51 Dose: 500 units Sodium Chloride (Normal Saline) 1,000 mls @ 125 mls/hr IV ASDIRECTED [facility] Last Admin: 03/04/18 13:19 Dose: 125 mls/hr Magnesium Hydroxide (Milk Of Magnesia) 30 ml PO Q12H PRN PRN Reason: Constipation Melatonin (Melatonin) 9 mg PO BEDTIME [facility] Last Admin: 03/04/18 04:12 Dose: Not Given Olanzapine (Zyprexa) 30 mg PO BID [facility] Last Admin: 03/04/18 12:54 Dose: 30 mg Oxycodone HCl (Oxycodone) 5 mg PO Q4H PRN PRN Reason: Pain (moderate 4-6) Chlorpromazine 100mg ((Ptom)) 0 each PO Q3H PRN PRN Reason: AGITATION Last Admin: 03/04/18 12:31 Dose: 1 each Chlorpromazine 100mg ((Ptom)) 0 each PO TID [facility] Last Admin: 03/04/18 09:49 Dose: Not Given Polyethylene Glycol (Miralax) 17 gm PO DAILY PRN PRN Reason: Constipation Last Admin: 03/03/18 10:09 Dose: 17 gm Senna/Docusate Sodium (Senna Plus) 1 tab PO BID PRN PRN Reason: Constipation Last Admin: 03/03/18 10:10 Dose: 1 tab Tamsulosin [facility] ([facility]) [facility] Last Admin: 03/04/18 07:53 Dose: 0.4 mg Discontinued Medications Chlorpromazine HCl (Thorazine) 100 mg PO Q3H PRN PRN Reason: Agitation Last Admin: 03/01/18 02:59 Dose: 100 mg Chlorpromazine HCl (Thorazine) 100 mg IM BID PRN PRN Reason: aggitation Last Admin: 02/28/18 18:15 Dose: 100 mg Chlorpromazine HCl (Thorazine) 100 mg IM BID PRN PRN Reason: AGITATION Last Admin: 03/01/18 07:32 Dose: 100 mg Chlorpromazine HCl (Thorazine) 100 mg IM ONETIME ONE Stop: 03/01/18 10:16 Last Admin: 03/01/18 10:08 Dose: 100 mg Chlorpromazine HCl (Thorazine) 100 mg IM ONETIME ONE Stop: 03/01/18 14:21 Last Admin: 03/01/18 14:15 Dose: 100 mg Chlorpromazine HCl (Thorazine) 100 mg IM ONETIME ONE Stop: 03/01/18 15:21 Last Admin: 03/01/18 15:16 Dose: 100 mg Chlorpromazine HCl (Thorazine) 100 mg IM Q2H PRN PRN Reason: AGITATION Last Admin: 03/02/18 05:11 Dose: 100 mg Enoxaparin Sodium (Lovenox) 40 mg SUBCUT DAILY [facility] Last Admin: 02/28/18 00:53 Dose: 40 mg Finasteride (Proscar) 5 mg PO ONETIME ONE Stop: 03/02/18 02:31 Last Admin: 03/02/18 02:30 Dose: 5 mg Heparin Sodium (Porcine) (Heparin Lock Flush 100 Units/Ml) Confirm Administered Dose 500 units .ROUTE .STK-MED ONE Stop: 02/28/18 13:13 Last Admin: 02/28/18 15:04 Dose: Not Given Sodium Chloride (Normal Saline) 1,000 mls @ 1,000 mls/hr IV ASDIRECTED [facility] Stop: 02/28/18 00:15 Last Admin: 02/27/18 22:56 Dose: 1,000 mls/hr Ceftriaxone Sodium 1 gm/ (Sodium Chloride) 50 mls @ 100 mls/hr IV ONETIME ONE Stop: 02/27/18 23:07 Last Admin: 02/27/18 22:56 Dose: 100 mls/hr Levofloxacin/Dextrose 500 mg/ (Premix) 100 mls @ 100 mls/hr IV ONETIME ONE Stop: 02/27/18 23:38 Last Admin: 02/27/18 23:22 Dose: 100 mls/hr Azithromycin 500 mg/ Sodium (Chloride) 250 mls @ 250 mls/hr IV Q24H [facility] Last Admin: 03/01/18 00:45 Dose: 250 mls/hr Ceftriaxone Sodium 1 gm/ (Sodium Chloride) 50 mls @ 100 mls/hr IV Q24H [facility] Last Admin: 03/01/18 00:42 Dose: 100 mls/hr Lactated Ringer's (Ringers, Lactated) 1,000 mls @ 250 mls/hr IV ASDIRECTED [facility] Stop: 02/28/18 04:16 Last Admin: 02/28/18 00:57 Dose: 250 mls/hr Lactated Ringer's (Ringers, Lactated) 1,000 mls @ 125 mls/hr IV ASDIRECTED [facility] Stop: 02/28/18 03:45 Lactated Ringer's (Ringers, Lactated) 1,000 mls @ 125 mls/hr IV ASDIRECTED [facility] Last Admin: 02/28/18 06:05 Dose: 125 mls/hr Sodium Chloride (Normal Saline) 1,000 mls @ 125 mls/hr IV ASDIRECTED [facility] Last Admin: 03/02/18 13:57 Dose: 125 mls/hr Sodium Chloride (Normal Saline) 1,000 mls @ 500 mls/hr IV ASDIRECTED [facility] Stop: 03/02/18 14:16 Last Admin: 03/02/18 12:55 Dose: 500 mls/hr Sodium Chloride (Normal Saline) 1,000 mls @ 100 mls/hr IV ASDIRECTED [facility] Last Admin: 03/02/18 21:42 Dose: 100 mls/hr Sodium Chloride (Normal Saline) 1,000 mls @ 100 mls/hr IV ASDIRECTED [facility] Stop: 03/04/18 12:31 Sodium Chloride (Normal Saline) 1,000 mls @ 75 mls/hr IV ASDIRECTED [facility] Sodium Chloride (Normal Saline) 500 mls @ 250 mls/hr IV ASDIRECTED [facility] Sodium Chloride (Normal Saline) 500 mls @ 250 mls/hr IV ASDIRECTED [facility] Stop: 03/03/18 21:14 Last Admin: 03/03/18 19:15 Dose: 250 mls/hr Ondansetron HCl (Zofran) 4 mg IV Q4H PRN PRN Reason: Nausea/Vomiting Risperidone (Risperidal) 2 mg PO BID [facility] Last Admin: 03/01/18 09:49 Dose: 2 mg Sodium Chloride (Saline Flush) 10 ml FLUSH ASDIRECTED PRN PRN Reason: Keep Vein Open Last Admin: 03/01/18 02:22 Dose: 10 ml - Exam Quality Assessment: No: Supplemental Oxygen General: Alert, Cooperative, No Acute Distress. No: Oriented Neck: Supple Lungs: Clear to Auscultation, Normal Respiratory Effort, Decreased Breath Sounds (both bases) Cardiovascular: Regular Rhythm, Tachycardia GI/Abdominal Exam: Soft, No Distention Extremities: Pedal Edema Skin: Warm, Dry Psy/Mental Status: Alert. No: Anxious - Problem List Review Problem List Initiated/Reviewed/Updated: Yes - Plan Plan:: ASSESSMENT AND PLAN LEFT LOWER LOBE PNEUMONIA - subtle infiltrate in the left lower lung. Stable since admission with no significant respiratory compromise or fever. cultures have been negative. -Blood cultures negative thus far -supplemental oxygen as needed -Doxycycline 100 mg by mouth twice a day FOLLICULAR LYMPHOMA - status post first course of chemotherapy with good result and no evidence of residual disease on PET scan. 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 half-way reports trouble over the past month with slow escalation prior to decompensation in the hospital. -Risperdione discontinued -Melatonin 9 mg by mouth daily at bedtime -Depakote 250 mg by mouth twice daily -Continue aripiprazole -Continue current dose of olanzapine -Continue intermittent use of chlorpromazine -consider transfer to behavioral health unit for medication adjustment with decompensating schizophrenia MAINTENANCE ISSUES -DVT prophylaxis; enoxaparin 40 mg subcutaneous daily -GI prophylaxis; not indicated -Rojas catheter; removed this morning -Nutrition; regular diet DISPOSITION - [facility] possible transfer to behavioral health unit Espinoza Lieberman MD
[2018-03-05] MEDS ORDERED: Lidocaine 2% Jelly 10 ML Urojet MUCMEM ONE (05:37)
[2018-03-05] MEDS: CHLORPROMAZINE 100 MG PO SCH (08:50)
[2018-03-05] MEDS: Tamsulosin 0.4 MG Cap.ER PO SCH (08:50)
[2018-03-05] MEDS: OLANZapine 5 MG Tab PO SCH (08:57)
[2018-03-05] MEDS: Doxycycline 100 MG Cap PO SCH (08:57)
[2018-03-05] MEDS: ARIPiprazole 10 MG Tab PO SCH (08:57)
[2018-03-05] MEDS: Divalproex Sodium Delayed-Release 250 MG Tab.CR PO SCH ×2 (08:57→10:22)
[2018-03-05] MEDS: cloNIDine 0.1 MG Tab PO SCH (08:58)
[2018-03-05 11:33] VITALS: BP 104/64
--- NOTE | 2018-03-05 12:21 | PCM.DCSUM1 ---
Discharge Summary - Hospital Course Brief History: 62-year-old male with advanced schizophrenia who presented with fever and shortness of breath. He was admitted for management of left lung pneumonia with hypoxia. - Discharge Data Discharge Date: 03/05/18 Discharge Disposition: Home, Self-Care 01 Condition: Good - Discharge Diagnosis/Problem(s) (1) Pneumonia SNOMED Code(s): 935077599 ICD Code: J18.9 - PNEUMONIA, UNSPECIFIED ORGANISM Status: Acute Qualifiers: Pneumonia type: due to unspecified organism Laterality: left Lung location: lower lobe of lung Qualified Code(s): J18.1 - Lobar pneumonia, unspecified organism (2) Acute urinary retention SNOMED Code(s): 359665146 ICD Code: R33.8 - OTHER RETENTION OF URINE Status: Acute (3) Schizophrenia, unspecified SNOMED Code(s): 77173505 ICD Code: F20.9 - SCHIZOPHRENIA, UNSPECIFIED Status: Chronic Qualifiers: Schizophrenia type: undifferentiated schizophrenia Qualified Code(s): F20.3 - Undifferentiated schizophrenia - Patient Summary/Data Hospital Course: Luis presented to the emergency room with fever and shortness of breath. Workup in the emergency room was suggestive of possible left lower lung pneumonia. He was empirically started on ceftriaxone and azithromycin and admitted to the hospital for further management. Overnight following admission there were no acute issues but the day after admission he developed progressive agitation. He also had difficulty with urinary retention secondary to bladder outlet obstruction and required intermittent straight catheterization. The difficulties with agitation progressed over the next 24 hours with increasing need for medications to help calm his behavior. He had ongoing difficulty with urinary retention and a Rojas catheter was placed. Behavior issues continued over the next [address] Hoffman with psychiatry was consulted and recommended discontinuation of risperidone and initiation of a mood stabilizing medication. Depakote was initiated at this time. Respiratory status was relatively stable and he did not require supplemental oxygen. There was some concern along the way that the initial antibiotics may be causing a medication interaction and they were discontinued in favor of doxycycline. No definitive adverse medication event was definitively identified. He has done well since with the doxycycline. After the initiation of the Depakote his behaviors did slowly calm down. He did remain agitated through the weekend but had a trend in the more calm and relaxed direction. The day before discharge we did remove the Rojas catheter with a voiding trial. Unfortunately he was able to pass only small quantities of urine. He did require intermittent straight catheterization through the next 24 hours. Given his recent behavior issues we did discuss the possibility of transfer to an inpatient psychiatric facility but given his significant improvement with the addition of the Depakote we elected to avoid this. He has been very calm and cooperative for the past 48 hours. There have been no aggressive behavior issues. The patient has become more and more interactive. There have been no fevers and he has not required supplemental oxygen. Clinically he looks well and says that he's feeling better. The plan is for discharge back to the [facility] at this time. We did replace the indwelling Rojas catheter prior to discharge. We have also initiated tamsulosin and finasteride to help with suspected BPH with bladder outlet obstruction. After discharge the plan is to continue him on the Depakote and risperidone will be discontinued for now. He will need 3-1/2 additional days of antibiotic therapy. All of his new prescriptions have been sent to the pharmacy in [place]. He would benefit from close follow-up with his psychiatrist to ensure that the medication changes remain effective. The Rojas catheter as mentioned is still in place. He should follow-up with his primary care in approximately 2 weeks to discuss a trial of voiding after catheter removal versus a slightly longer course with the catheter in place. - Patient Instructions Diet: Regular Diet as Tolerated Activity: As Tolerated Showering/Bathing: May Shower Notify Provider of: Fever, Increased Pain, Nausea and/or Vomiting Other/Special Instructions: 1. You were in the hospital for management of left lower lung pneumonia. Your infection has been getting better with our antibiotic therapy. I do recommend 7 additional doses of doxycycline. You will take 1 tab twice daily with food. Your next dose is due tonight. 2. During the hospital stay stay you had difficulty with urinary retention. We did start 2 new medications to help with an enlarged prostate but you continued to have difficulty passing urine so we placed an indwelling Rojas catheter. This will remain in place for 2-4 weeks. You should follow-up with your primary care provider to discuss a trial of voiding and Rojas catheter removal in 2-4 weeks. 3. We made some adjustments to your psychiatric medications. I recommend that you stop taking risperidone. In its place you will be taking Depakote 250 mg twice daily with meals. This medication works as a mood stabilizer and was recommended by our consulting psychiatrist. 4. Please seek medical attention if you develop fever greater than 101, you have acute onset of shortness of breath or if you develop persistent vomiting or diarrhea. - Discharge Plan Prescriptions/Med Rec: Divalproex Sodium 250 mg PO BIDMEALS #60 tab.cr Doxycycline Calcium [IMW: Doxycycline] 100 mg PO BID #7 capsule Finasteride 5 mg PO BEDTIME #30 tablet Tamsulosin [Flomax] 0.4 mg PO DAILY #30 cap.er Home Medications: Home Meds ClonazePAM [KlonoPIN] 0.5 mg PO TID PRN 06/22/17 [History] OLANZapine [Zyprexa] 30 mg PO BID 06/22/17 [History] Polyethylene Glycol 3350 [MiraLAX] 17 gm PO ASDIRECTED PRN 06/22/17 [History] chlorproMAZINE [Thorazine] 100 mg IM BID PRN 06/22/17 [History] chlorproMAZINE [Thorazine] 100 mg PO Q3H PRN 06/22/17 [History] cloNIDine [Catapres] 0.1 mg PO Q12HR 06/22/17 [History] diphenhydrAMINE [Benadryl] 25 mg PO Q4H PRN 06/22/17 [History] ARIPiprazole [Abilify] 30 mg PO DAILY 06/26/17 [History] Divalproex Sodium 250 mg PO BIDMEALS #60 tab.cr 03/05/18 [Rx] Doxycycline Calcium [IMW: Doxycycline] 100 mg PO BID #7 capsule 03/05/18 [Rx] Finasteride 5 mg PO BEDTIME #30 tablet 03/05/18 [Rx] Tamsulosin [Flomax] 0.4 mg PO DAILY #30 cap.er 03/05/18 [Rx] Patient Handouts: Doxycycline tablets or capsules, Community-Acquired Pneumonia , Adult, [id number] Referrals: Pérez Bradley MD [Ordering Only Provider] - (2 weeks - f/u to assess changes to psych meds) - Discharge Summary/Plan Comment DC Time >30 min.: Yes (40 - coordinating follow-up with placement of Rojas catheter prior to d/c) - Patient Data Vitals - Most Recent: Last Vital Signs Temp 35.5 C 03/05/18 11:31 Pulse 108 H 03/05/18 11:31 Resp 16 03/05/18 11:31 BP 104/64 03/05/18 11:31 Pulse Ox 93 L 03/05/18 11:31 Weight - Most Recent: 73.799 kg I&O - Last 24 hours: Intake & Output 03/04/18 03/05/18 03/05/18 22:59 06:59 14:59 Intake Total 1503 50 Output Total 800 Balance 1503 -800 50 KEL Results - Last 24 hrs: Microbiology 02/27/18 22:15 Aerobic Blood Culture - Final Blood - Venous - Lab Draw NO GROWTH AFTER 5 DAYS Anaerobic Blood Culture - Final NO GROWTH AFTER 5 DAYS 02/27/18 22:15 Aerobic Blood Culture - Final Blood - Venous NO GROWTH AFTER 5 DAYS Anaerobic Blood Culture - Final NO GROWTH AFTER 5 DAYS Med Orders - Current: Current Medications Acetaminophen (Tylenol) 650 mg PO Q4H PRN PRN Reason: Pain (Mild 1-3)/fever Aripiprazole (Abilify) 30 mg PO DAILY [facility] Last Admin: 03/05/18 08:57 Dose: 30 mg Chlorpromazine HCl (Thorazine) 100 mg IM Q2H PRN PRN Reason: AGITATION Clonazepam (Klonopin) 0.5 mg PO TID PRN PRN Reason: Anxiety Last Admin: 03/02/18 10:56 Dose: 0.5 mg Clonidine HCl (Catapres) 0.1 mg PO Q12H [facility] Last Admin: 03/05/18 08:58 Dose: 0.1 mg Diphenhydramine HCl (Benadryl) 25 mg PO Q4H PRN PRN Reason: drooling Divalproex Sodium (Divalproex Sodium) 250 mg PO BIDMEALS [facility] Last Admin: 03/05/18 10:22 Dose: Not Given Doxycycline Hyclate (Vibramycin) 100 mg PO BID [facility] Last Admin: 03/05/18 08:57 Dose: 100 mg Enoxaparin Sodium (Lovenox) 40 mg SUBCUT BEDTIME [facility] Last Admin: 03/04/18 22:07 Dose: Not Given Finasteride (Proscar) 5 mg PO BEDTIME [facility] Last Admin: 03/04/18 22:09 Dose: Not Given Heparin Sodium (Porcine) (Heparin Lock Flush 100 Units/Ml) 500 units FLUSH ASDIRECTED PRN PRN Reason: IV Use Last Admin: 03/04/18 20:30 Dose: 500 units Magnesium Hydroxide (Milk Of Magnesia) 30 ml PO Q12H PRN PRN Reason: Constipation Melatonin (Melatonin) 9 mg PO BEDTIME [facility] Last Admin: 03/04/18 22:09 Dose: Not Given Olanzapine (Zyprexa) 30 mg PO BID [facility] Last Admin: 03/05/18 08:57 Dose: 30 mg Oxycodone HCl (Oxycodone) 5 mg PO Q4H PRN PRN Reason: Pain (moderate 4-6) Chlorpromazine 100mg ((Ptom)) 0 each PO Q3H PRN PRN Reason: AGITATION Last Admin: 03/04/18 17:24 Dose: 1 each Chlorpromazine 100mg ((Ptom)) 0 each PO TID [facility] Last Admin: 03/05/18 08:50 Dose: 1 each Polyethylene Glycol (Miralax) 17 gm PO DAILY PRN PRN Reason: Constipation Last Admin: 03/03/18 10:09 Dose: 17 gm Senna/Docusate Sodium (Senna Plus) 1 tab PO BID PRN PRN Reason: Constipation Last Admin: 03/03/18 10:10 Dose: 1 tab [facility] Last Admin: 03/05/18 08:50 Dose: 0.4 mg Discontinued Medications Chlorpromazine HCl (Thorazine) 100 mg PO Q3H PRN PRN Reason: Agitation Last Admin: 03/01/18 02:59 Dose: 100 mg Chlorpromazine HCl (Thorazine) 100 mg IM BID PRN PRN Reason: aggitation Last Admin: 02/28/18 18:15 Dose: 100 mg Chlorpromazine HCl (Thorazine) 100 mg IM BID PRN PRN Reason: AGITATION Last Admin: 03/01/18 07:32 Dose: 100 mg Chlorpromazine HCl (Thorazine) 100 mg IM ONETIME ONE Stop: 03/01/18 10:16 Last Admin: 03/01/18 10:08 Dose: 100 mg Chlorpromazine HCl (Thorazine) 100 mg IM ONETIME ONE Stop: 03/01/18 14:21 Last Admin: 03/01/18 14:15 Dose: 100 mg Chlorpromazine HCl (Thorazine) 100 mg IM ONETIME ONE Stop: 03/01/18 15:21 Last Admin: 03/01/18 15:16 Dose: 100 mg Chlorpromazine HCl (Thorazine) 100 mg IM Q2H PRN PRN Reason: AGITATION Last Admin: 03/02/18 05:11 Dose: 100 mg Enoxaparin Sodium (Lovenox) 40 mg SUBCUT DAILY [facility] Last Admin: 02/28/18 00:53 Dose: 40 mg Finasteride (Proscar) 5 mg PO ONETIME ONE Stop: 03/02/18 02:31 Last Admin: 03/02/18 02:30 Dose: 5 mg Heparin Sodium (Porcine) (Heparin Lock Flush 100 Units/Ml) Confirm Administered Dose 500 units .ROUTE .STK-MED ONE Stop: 02/28/18 13:13 Last Admin: 02/28/18 15:04 Dose: Not Given Sodium Chloride (Normal Saline) 1,000 mls @ 1,000 mls/hr IV ASDIRECTED [facility] Stop: 02/28/18 00:15 Last Admin: 02/27/18 22:56 Dose: 1,000 mls/hr Ceftriaxone Sodium 1 gm/ (Sodium Chloride) 50 mls @ 100 mls/hr IV ONETIME ONE Stop: 02/27/18 23:07 Last Admin: 02/27/18 22:56 Dose: 100 mls/hr Levofloxacin/Dextrose 500 mg/ (Premix) 100 mls @ 100 mls/hr IV ONETIME ONE Stop: 02/27/18 23:38 Last Admin: 02/27/18 23:22 Dose: 100 mls/hr Azithromycin 500 mg/ Sodium (Chloride) 250 mls @ 250 mls/hr IV Q24H [facility] Last Admin: 03/01/18 00:45 Dose: 250 mls/hr Ceftriaxone Sodium 1 gm/ (Sodium Chloride) 50 mls @ 100 mls/hr IV Q24H [facility] Last Admin: 03/01/18 00:42 Dose: 100 mls/hr Lactated Ringer's (Ringers, Lactated) 1,000 mls @ 250 mls/hr IV ASDIRECTED [facility] Stop: 02/28/18 04:16 Last Admin: 02/28/18 00:57 Dose: 250 mls/hr Lactated Ringer's (Ringers, Lactated) 1,000 mls @ 125 mls/hr IV ASDIRECTED [facility] Stop: 02/28/18 03:45 Lactated Ringer's (Ringers, Lactated) 1,000 mls @ 125 mls/hr IV ASDIRECTED [facility] Last Admin: 02/28/18 06:05 Dose: 125 mls/hr Sodium Chloride (Normal Saline) 1,000 mls @ 125 mls/hr IV ASDIRECTED [facility] Last Admin: 03/02/18 13:57 Dose: 125 mls/hr Sodium Chloride (Normal Saline) 1,000 mls @ 500 mls/hr IV ASDIRECTED [facility] Stop: 03/02/18 14:16 Last Admin: 03/02/18 12:55 Dose: 500 mls/hr Sodium Chloride (Normal Saline) 1,000 mls @ 100 mls/hr IV ASDIRECTED [facility] Last Admin: 03/02/18 21:42 Dose: 100 mls/hr Sodium Chloride (Normal Saline) 1,000 mls @ 100 mls/hr IV ASDIRECTED [facility] Stop: 03/04/18 12:31 Sodium Chloride (Normal Saline) 1,000 mls @ 75 mls/hr IV ASDIRECTED [facility] Sodium Chloride (Normal Saline) 500 mls @ 250 mls/hr IV ASDIRECTED [facility] Sodium Chloride (Normal Saline) 1,000 mls @ 125 mls/hr IV ASDIRECTED [facility] Last Admin: 03/04/18 19:37 Dose: 125 mls/hr Sodium Chloride (Normal Saline) 500 mls @ 250 mls/hr IV ASDIRECTED [facility] Stop: 03/03/18 21:14 Last Admin: 03/03/18 19:15 Dose: 250 mls/hr Lidocaine HCl (Xylocaine 2% Jelly) 10 ml MUCMEM ONETIME ONE Stop: 03/05/18 05:38 Last Admin: 03/05/18 06:06 Dose: 10 ml Ondansetron HCl (Zofran) 4 mg IV Q4H PRN PRN Reason: Nausea/Vomiting Risperidone (Risperidal) 2 mg PO BID [facility] Last Admin: 03/01/18 09:49 Dose: 2 mg Sodium Chloride (Saline Flush) 10 ml FLUSH ASDIRECTED PRN PRN Reason: Keep Vein Open Last Admin: 03/01/18 02:22 Dose: 10 ml - Exam Quality Assessment: Denies: Supplemental Oxygen General: Reports: Alert, Cooperative, No Acute Distress Neck: Reports: Supple Lungs: Reports: Normal Respiratory Effort GI/Abdominal Exam: Soft, No Distention Extremities: No Pedal Edema Skin: Reports: Warm, Dry Psy/Mental Status: Reports: Alert. Denies: Anxious
== END 2018-03-05 13:00 | disposition home or self-care (01) | DRG 194 ==
LOC: JP.ED 22:08 → JP.MS 23:44
PROVIDERS: ADMIT Hospitalist; ATTEND Hospitalist
DX: J18.1 Lobar pneumonia, unspecified organism (principal); F20.2 Catatonic schizophrenia; C82.90 Follicular lymphoma, unspecified, unspecified site; N13.8 Other obstructive and reflux uropathy; R50.9 Fever, unspecified; R06.00 Dyspnea, unspecified; C79.51 Secondary malignant neoplasm of bone; Z66 Do not resuscitate; R09.02 Hypoxemia; R45.1 Restlessness and agitation; Z78.1 Physical restraint status; R33.8 Other retention of urine; Z92.21 Personal history of antineoplastic chemotherapy; N40.1 Benign prostatic hyperplasia with lower urinary tract symptoms; Z88.2 Allergy status to sulfonamides
CPT/HCPCS: 36415; 71045 ×2; 80053; 81001; 83605; 85025; 87040 ×2; 96365; 96367; 99285; C1751; J0696; J1956; J7040; J7050; 51701; 51702; 80048; 87804; 99284; A9270-GY; J0456; J1642; J1650; J3230; J7120; Q3014-GT

== ENCOUNTER 2018-03-27 09:49 | Emergency (ER) | payer MEDICARE, MEDICAID ==
[2018-03-27] MEDS ORDERED: LORazepam 2 MG/ML SDV IM ONE (10:16)
[2018-03-27] MEDS ORDERED: LORazepam 2 MG/ML SDV ONE (10:18)
--- NOTE | 2018-03-27 10:20 | EDM.PDOC ---
ED HPI GENERAL MEDICAL PROBLEM - General Chief Complaint: General Stated Complaint: NOT EATING OR DRINKING Time Seen by Provider: 03/27/18 10:17 History Limitations: Reports: No Limitations - History of Present Illness INITIAL COMMENTS - FREE TEXT/NARRATIVE: pt arrived seeming very confused and uncooperative. he will not sit down or will not follow directions. He was being seen for his chemo treatment and his port was assessed and he pulled out the needle. He has a known diagnosis of lymphoma and is on maintence chemo. His last chemo was Dec. Onset: Other ( The confusion had gone on for a few days but it is much worse today. He recently saw his psych dr Dr wade and med changes were made. Will obtain those records. ) Duration: Day(s):, Getting Worse Location: Reports: Other ( increased confusion) Associated Symptoms: Reports: Confusion - Related Data Allergies Allergy/AdvReac Type Severity Reaction Status Date / Time Sulfa (Sulfonamide Allergy UNKNOWN Verified 03/27/18 12:31 Antibiotics) Home Meds: Home Meds ClonazePAM [KlonoPIN] 0.5 mg PO TID PRN 06/22/17 [History] OLANZapine [Zyprexa] 30 mg PO BID 06/22/17 [History] Polyethylene Glycol 3350 [MiraLAX] 17 gm PO ASDIRECTED PRN 06/22/17 [History] chlorproMAZINE [Thorazine] 100 mg IM BID PRN 06/22/17 [History] chlorproMAZINE [Thorazine] 100 mg PO Q3H PRN 06/22/17 [History] cloNIDine [Catapres] 0.1 mg PO Q12HR 06/22/17 [History] diphenhydrAMINE [Benadryl] 25 mg PO Q4H PRN 06/22/17 [History] ARIPiprazole [Abilify] 30 mg PO DAILY 06/26/17 [History] Divalproex Sodium 250 mg PO BIDMEALS #60 tab.cr 03/05/18 [Rx] Finasteride 5 mg PO BEDTIME #30 tablet 03/05/18 [Rx] Tamsulosin [Flomax] 0.4 mg PO DAILY #30 cap.er 03/05/18 [Rx] Past Medical History Cardiovascular History: Reports: High Cholesterol Psychiatric History: Reports: Schizophrenia Oncologic (Cancer) History: Reports: Other (See Below) Other Oncologic History: metastisis bone cancer. Social & Family History - Family History Family Medical History: Noncontributory - Caffeine Use Caffeine Use: Reports: Coffee ED ROS GENERAL - Review of Systems Review Of Systems: See Below Constitutional: Reports: No Symptoms, Decreased Appetite, Other (pt has had a very poor intake for the past 24 hours. ) HEENT: Reports: Other (Pt has had some purulent drainge from his nose. ) Respiratory: Reports: No Symptoms Cardiovascular: Reports: No Symptoms Endocrine: Reports: No Symptoms GI/Abdominal: Reports: No Symptoms : Reports: Other (pt has a history of urinary retention) Musculoskeletal: Reports: No Symptoms Skin: Reports: No Symptoms Neurological: Reports: Confusion Psychiatric: Reports: Agitation, Anxiety, Hallucinations ED EXAM, GENERAL - Physical Exam Exam: See Below Free Text/Narrative:: Pt arrived with a history of confusion and having alot of behavior changes. He has not had a fever. He had a cath removed the 12 of March. Exam Limited By: No Limitations General Appearance: Alert, Anxious, Other (quite out of control. ) Ears: Normal TMs Ear Exam: Right Ear: Bleeding Nose: Normal Inspection Throat/Mouth: Normal Inspection Head: Atraumatic Neck: Normal Inspection Respiratory/Chest: No Respiratory Distress Cardiovascular: Regular Rate, Rhythm GI/Abdominal: Soft, Non-Tender (Male) Exam: Other ( bladder was scanned and he had about 500cc in the bladder. ) Back Exam: Normal Inspection Extremities: Normal Inspection Neurological: Alert, Confused, Other (pt does not follow directions. ) Course - Vital Signs Last Recorded V/S: Last Vital Signs Temp 36.3 C 03/27/18 14:07 Pulse 96 03/27/18 14:07 Resp 16 03/27/18 14:07 BP 104/64 03/27/18 14:07 Pulse Ox 100 03/27/18 14:07 - Orders/Labs/Meds Orders: Active Orders 24 hr Category Date Time Status Enema [RC] ASDIRECTED Care 03/27/18 15:36 Active Rangel Catheter Insertion [Insert Urinary Catheter] [OM. Care 03/27/18 11:00 Ordered PC] Q24H Urinary Catheter Assessment [RC] ASDIRECTED Care 03/27/18 11:01 Active UA W/MICROSCOPIC [URIN] Urgent Lab 03/27/18 11:57 Ordered Sodium Chloride 0.9% [Normal Saline] 1,000 ml Med 03/27/18 11:00 Active IV ASDIRECTED Sodium Chloride 0.9% [Normal Saline] 1,000 ml Med 03/27/18 13:00 Active IV ASDIRECTED Medication Orders Sodium Chloride (Normal Saline) 1,000 mls @ 999 mls/hr IV ASDIRECTED MIRTHA Last Admin: 03/27/18 11:47 Dose: 999 mls/hr Sodium Chloride (Normal Saline) 1,000 mls @ 999 mls/hr IV ASDIRECTED MIRTHA Last Admin: 03/27/18 13:01 Dose: 999 mls/hr Labs: Laboratory Tests 03/27/18 03/27/18 Range/Units 11:57 12:09 C-Reactive Protein 2.17 H (0.0-0.3) mg/dL Urine Color Yellow Urine Appearance Clear Urine pH 7.0 (4.5-8.0) Ur Specific [place] 1.010 (1.008-1.030) Urine Protein Negative (NEGATIVE) mg/dL Urine Glucose (UA) Normal (NEGATIVE) mg/dL Urine Ketones 15 H (NEGATIVE) mg/dL Urine Occult Blood Negative (NEGATIVE) Urine Nitrite Negative (NEGAITVE) Urine Bilirubin Small (NEGATIVE) Urine Urobilinogen 4 (NORMAL) mg/dL Ur Leukocyte Esterase Negative (NEGATIVE) Urine RBC 0-5 (0-5) Urine WBC Not seen (0-5) Ur Epithelial Cells Not seen Amorphous Sediment Not seen Urine Bacteria Not seen Urine Mucus Few Meds: Medications Generic Name Dose Route Start Last Admin Trade Name Freq PRN Reason Stop Dose Admin Sodium Chloride 1,000 mls @ 999 mls/hr 03/27/18 11:00 03/27/18 11:47 Normal Saline IV 999 mls/hr ASDIRECTED MIRTHA Administration Sodium Chloride 1,000 mls @ 999 mls/hr 03/27/18 13:00 03/27/18 13:01 Normal Saline IV 999 mls/hr ASDIRECTED MIRTHA Administration Discontinued Medications Generic Name Dose Route Start Last Admin Trade Name Freq PRN Reason Stop Dose Admin Bisacodyl 10 mg 03/27/18 12:43 03/27/18 13:55 Dulcolax RECTAL 03/27/18 12:44 10 mg ONETIME ONE Administration Clonazepam 0.5 mg 03/27/18 13:39 03/27/18 13:55 Klonopin PO 03/27/18 13:40 0.5 mg ONETIME ONE Administration Ceftriaxone Sodium 1 gm/ 50 mls @ 100 mls/hr 03/27/18 13:02 03/27/18 13:29 Sodium Chloride IV 03/27/18 13:31 100 mls/hr ONETIME ONE Administration Lidocaine HCl 10 ml 03/27/18 10:59 03/27/18 11:40 Xylocaine 2% Jelly MUCMEM 03/27/18 11:00 10 ml ONETIME ONE Administration Lidocaine HCl Confirm 03/27/18 11:00 03/27/18 11:11 Xylocaine 2% Jelly Administered 03/27/18 11:01 Not Given Dose 10 ml .ROUTE .STK-MED ONE Lorazepam 1 mg 03/27/18 10:16 03/27/18 10:24 Ativan IM 03/27/18 10:17 1 mg ONETIME ONE Administration Lorazepam Confirm 03/27/18 10:18 03/27/18 10:25 Ativan Administered 03/27/18 10:19 Not Given Dose 2 mg .ROUTE .STK-MED ONE Magnesium Citrate 296 ml 03/27/18 12:43 03/27/18 13:28 Citrate Of Magnesia PO 03/27/18 12:44 296 ml ONETIME ONE Administration - Re-Assessments/Exams Free Text/Narrative Re-Assessment/Exam: 03/27/18 13:35 13:38 sed rate was normal. Cat scan of the head did not show acute findings, 03/27/18 13:41 03/27/18 16:10 pt was given 2 liters of fluid and he did perk up and was more talkative. He was given ativan 1 mg im because he was very agitated at first. He was found to have nearly 500 cc in his bladder. a rangel was placed and he has had a good output. He did eat lunch. He had a mod bm while he was here. Departure - Departure Time of Disposition: 16:12 Disposition: Home, Self-Care 01 Condition: Fair Clinical Impression: Urinary retention, Constipation, Dehydration, Agitation, Left maxillary sinusitis - Discharge Information Referrals: PCP,None [Primary Care Provider] - Forms: ED Department Discharge Care Plan Goals: cont same meds, push fluids, leave rangel in for 2 days and then try to remove and see if he is voiding ok. augmentin 875 bid for sinus infection on the left. - My Orders Last 24 Hours: My Active Orders 03/27/18 11:00 Rangel Catheter Insertion [Insert Urinary Catheter] [OM.PC] Q24H Sodium Chloride 0.9% [Normal Saline] 1,000 ml IV ASDIRECTED 03/27/18 11:01 Urinary Catheter Assessment [RC] ASDIRECTED 03/27/18 11:57 UA W/MICROSCOPIC [URIN] Urgent 03/27/18 13:00 Sodium Chloride 0.9% [Normal Saline] 1,000 ml IV ASDIRECTED 03/27/18 15:36 Enema [RC] ASDIRECTED - Assessment/Plan Last 24 Hours: My Active Orders 03/27/18 11:00 Rangel Catheter Insertion [Insert Urinary Catheter] [OM.PC] Q24H Sodium Chloride 0.9% [Normal Saline] 1,000 ml IV ASDIRECTED 03/27/18 11:01 Urinary Catheter Assessment [RC] ASDIRECTED 03/27/18 11:57 UA W/MICROSCOPIC [URIN] Urgent 03/27/18 13:00 Sodium Chloride 0.9% [Normal Saline] 1,000 ml IV ASDIRECTED 03/27/18 15:36 Enema [RC] ASDIRECTED
[2018-03-27] MEDS ORDERED: Lidocaine 2% Jelly 10 ML Urojet MUCMEM ONE (10:59)
[2018-03-27] MEDS ORDERED: Lidocaine 2% Jelly 10 ML Urojet ONE (11:00)
[2018-03-27] MEDS ORDERED: Sodium Chloride 0.9% 1,000 ML IV SCH ×2 (11:00→13:00)
--- NOTE | 2018-03-27 11:18 | CT ---
Head wo Cont HISTORY: Confusion COMPARISON: September 2017. TECHNIQUE: Noncontrast enhanced axial cuts were obtained of the brain. Total DLP: 806. FINDINGS:There is no cerebral or subdural hemorrhage. There is no mass effect or edema. The ventricle s and CSF spaces are appropriate for age. No space occupying lesions are demonstrated. The orbital st ructures are unremarkable. There is an air-fluid level seen within the right maxillary sinus. IMPRESSION: 1. Stable negative exam of the brain. 2. Partial consolidation of the right maxillary sinus.
[2018-03-27] MEDS ORDERED: Magnesium Citrate Solution 296 ML Bottle PO ONE (12:43)
[2018-03-27] MEDS ORDERED: Bisacodyl 10 MG Supp RECTAL ONE (12:43)
[2018-03-27] MEDS ORDERED: cefTRIAXone 1 GM in Sodium Chloride 0.9% 50 ML IV ONE (13:02)
--- NOTE | 2018-03-27 13:20 | CR ---
Portable chest Comparison: 27 February 2018. Findings: There is a right [id number] catheter unchanged. There are no infiltrates or effusions. T he heart and vascular structures are within normal limits. Impression: 1. No acute findings.
[2018-03-27] MEDS ORDERED: ClonazePAM 0.5 MG Tab PO ONE (13:39)
[2018-03-27 14:07] VITALS: BP 104/64
== END 2018-03-27 16:40 | disposition home or self-care (01) ==
LOC: JP.ED 09:49
DX: R33.9 Retention of urine, unspecified (principal); K59.00 Constipation, unspecified; E86.0 Dehydration; J32.0 Chronic maxillary sinusitis; R45.1 Restlessness and agitation; C85.90 Non-Hodgkin lymphoma, unspecified, unspecified site; Z88.2 Allergy status to sulfonamides; Z79.899 Other long term (current) drug therapy; E78.00 Pure hypercholesterolemia, unspecified
CPT/HCPCS: 36415; 51702; 70450; 71045; 81001; 86140; 96361; 96365; 96372; 99285; A9270; J0696; J1642; J2060; J7040; J7050

== ENCOUNTER 2018-03-31 14:00 | Emergency (ER) | payer MEDICARE, MEDICAID ==
[2018-03-31] MEDS ORDERED: Sodium Chloride 0.9% 1,000 ML IV SCH ×2 (14:45→16:15)
--- NOTE | 2018-03-31 14:51 | EDM.PDOC ---
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 He again for the last 2 days will not take any oral fluids, is noncommunicative and uncooperative. He is not violent. He has a slight cough but is not short of breath, has not been running fevers, no nausea or vomiting. His urine is become very dark over the past 24 hours. His skin looks "pasty". Onset: Gradual (Over the past several days) Severity: Moderate Associated Symptoms: Denies: Chest Pain, Fever/Chills, Nausea/Vomiting, Shortness of Breath - Related Data Allergies Allergy/AdvReac Type Severity Reaction Status Date / Time Sulfa (Sulfonamide Allergy UNKNOWN Verified 03/31/18 15:41 Antibiotics) Home Meds: Home Meds ClonazePAM [KlonoPIN] 0.5 mg PO TID PRN 06/22/17 [History] OLANZapine [Zyprexa] 30 mg PO BID 06/22/17 [History] Polyethylene Glycol 3350 [MiraLAX] 17 gm PO ASDIRECTED PRN 06/22/17 [History] chlorproMAZINE [Thorazine] 100 mg IM BID PRN 06/22/17 [History] chlorproMAZINE [Thorazine] 100 mg PO Q3H PRN 06/22/17 [History] cloNIDine [Catapres] 0.1 mg PO Q12HR 06/22/17 [History] diphenhydrAMINE [Benadryl] 25 mg PO Q4H PRN 06/22/17 [History] ARIPiprazole [Abilify] 30 mg PO DAILY 06/26/17 [History] Divalproex Sodium 250 mg PO BIDMEALS #60 tab.cr 03/05/18 [Rx] Finasteride 5 mg PO BEDTIME #30 tablet 03/05/18 [Rx] Tamsulosin [Flomax] 0.4 mg PO DAILY #30 cap.er 04/24/18 [Rx] Amoxicillin/Potassium Clav [Amox-Clav 875-125 mg Tablet] 1 tab PO BID 03/31/18 [ History] Past Medical History Cardiovascular History: Reports: High Cholesterol Genitourinary History: Reports: Retention, Urinary Psychiatric History: Reports: Schizophrenia Oncologic (Cancer) History: Reports: Other (See Below) Other Oncologic History: metastisis bone cancer. Social & Family History - Family History Family Medical History: Noncontributory - Caffeine Use Caffeine Use: Reports: Coffee ED ROS GENERAL - Review of Systems Review Of Systems: Unable To Obtain (Only obtainable from his caretakers which is in the history of present illness) ED EXAM, GENERAL - Physical Exam Exam: See Below Exam Limited By: Uncooperative General Appearance: Alert, No Apparent Distress Head: Atraumatic Neck: Supple Respiratory/Chest: No Respiratory Distress, Lungs Clear Cardiovascular: Regular Rate, Rhythm, Tachycardia, Diastolic Murmur GI/Abdominal: Non-Tender Extremities: No: Pedal Edema Neurological: Alert, Inattentive, Other (Initially nodded yes when asked if he didn't want anything to eat or drink, then he stopped answering questions) Skin Exam: Warm, Dry Course - Vital Signs Last Recorded V/S: Last Vital Signs Temp 96.6 F 03/31/18 15:04 Pulse 98 03/31/18 15:04 Resp 18 03/31/18 15:04 BP Pulse Ox - Orders/Labs/Meds Labs: Laboratory Tests 03/31/18 03/31/18 Range/Units 15:03 15:03 WBC 9.4 (4.5-11.0) K/uL RBC 4.52 (4.30-5.90) M/uL Hgb 13.7 D (12.0-15.0) g/dL Hct 41.1 (40.0-54.0) % MCV 91 (80-98) fL MCH 30 (27-31) pg MCHC 33 (32-36) % Plt Count 210 (150-400) K/uL Neut % (Auto) 85 H (36-66) % Lymph % (Auto) 5 L (24-44) % [place] % (Auto) 10 H (2-6) % Eos % (Auto) 0 L (2-4) % Baso % (Auto) 0 (0-1) % Sodium 139 L (140-148) mmol/L Potassium 4.4 (3.6-5.2) mmol/L Chloride 101 (100-108) mmol/L Carbon Dioxide 24 (21-32) mmol/L Anion Gap 18.4 H (5.0-14.0) mmol/L BUN 24 H (7-18) mg/dL Creatinine 0.9 (0.8-1.3) mg/dL Est Cr Clr Drug Dosing 79.56 mL/min Estimated GFR (MDRD) > 60 (>60) Glucose 69 L (74-106) mg/dL Calcium 8.1 L (8.5-10.1) mg/dL Total Bilirubin 1.0 D (0.2-1.0) mg/dL AST 18 (15-37) U/L ALT 23 (12-78) U/L Alkaline Phosphatase 111 (46-116) U/L Total Protein 6.2 L (6.4-8.2) g/dL Albumin 3.1 L (3.4-5.0) g/dL Globulin 3.1 (2.3-3.5) g/dL Albumin/Globulin Ratio 1.0 L (1.2-2.2) Meds: Medications Discontinued Medications Generic Name Dose Route Start Last Admin Trade Name Freq PRN Reason Stop Dose Admin Haloperidol Lactate 5 mg 03/31/18 15:27 03/31/18 15:30 Haldol IVPUSH 03/31/18 15:28 5 mg ONETIME ONE Administration Haloperidol Lactate Confirm 03/31/18 15:27 03/31/18 15:31 Haldol Administered 03/31/18 15:28 Not Given Dose 5 mg .ROUTE .STK-MED ONE Haloperidol Lactate 5 mg 03/31/18 16:02 03/31/18 16:06 Haldol IVPUSH 03/31/18 16:03 5 mg ONETIME ONE Administration Heparin Sodium (Porcine) 500 units 03/31/18 16:10 03/31/18 17:26 Heparin Lock Flush 100 Units/Ml FLUSH 03/31/18 16:11 500 units ONETIME ONE Administration Sodium Chloride 1,000 mls @ 1,000 mls/hr 03/31/18 14:45 03/31/18 15:15 Normal Saline IV 1,000 mls/hr ASDIRECTED MIRTHA Administration Sodium Chloride 1,000 mls @ 999 mls/hr 03/31/18 16:15 03/31/18 16:06 Normal Saline IV 999 mls/hr ASDIRECTED MIRTHA Administration Lorazepam 1 mg 03/31/18 15:08 03/31/18 15:14 Ativan IVPUSH 03/31/18 15:09 1 mg ONETIME ONE Administration - Re-Assessments/Exams Free Text/Narrative Re-Assessment/Exam: 03/31/18 14:51 Patient is DNR but the staff still is concerned they are unable to care for him any further. His guardian is supposed to arrive this week in 3 or 4 days. A CBC , CMP will be obtained as well as the patient will be given 1 L of fluid. 03/31/18 15:38 After the blood draw and during the IV fluid resuscitation, the patient became very agitated, kicking and trying to escape his wheelchair. He was given 1 mg of IV Ativan which really didn't help after 10 or 15 minutes and was given 5 mg of Haldol IV. Dr. Montilla is going to come up and discuss options with her caretakers. His CBC was normal, extended chemistry profile also fairly normal. 03/31/18 17:09 An additional 5 mg of Haldol was needed to settle the patient down but then he had 20 minutes of considerable called. He still would not cooperate and taking oral fluids but had 2 full liters of fluid IV. They were willing to take him back to see how he responds over the next 2-3 days. Departure - Departure Time of Disposition: 17:29 Disposition: DC/Tfer to [facility] 63 Condition: Fair Clinical Impression: Dehydration, Agitation - Discharge Information Instructions: Dehydration, Adult, [id number] Referrals: Amrit Ramos PA [Primary Care Provider] - Forms: ED Department Discharge Care Plan Goals: Continue with regular medications and maintain efforts to encourage fluids and oral intake. Reassess when his guardian arrives as to what level of aggressive treatment is needed or should be continued at that time.
[2018-03-31] MEDS ORDERED: LORazepam 2 MG/ML SDV IVPUSH ONE (15:08)
[2018-03-31] MEDS ORDERED: Haloperidol Lactate 5 MG/ML SDV IVPUSH ONE ×2 (15:27→16:02)
[2018-03-31] MEDS ORDERED: Haloperidol Lactate 5 MG/ML SDV ONE (15:27)
== END 2018-03-31 17:29 ==
LOC: JP.ED 14:00
DX: E86.0 Dehydration (principal); R45.1 Restlessness and agitation; E78.00 Pure hypercholesterolemia, unspecified; Z79.899 Other long term (current) drug therapy; Z88.2 Allergy status to sulfonamides
CPT/HCPCS: 36415; 80053; 85025; 96361; 96374; 96375; 96376; 99285; J1630; J1642; J2060; J7040

== ENCOUNTER 2018-05-07 22:17 | Emergency (ER) | payer MEDICARE, MEDICAID ==
[2018-05-07] MEDS ORDERED: Haloperidol Lactate 5 MG/ML SDV IVPUSH ONE (22:46)
[2018-05-07] MEDS ORDERED: Sodium Chloride 0.9% 10 ML Syringe FLUSH PRN (22:46)
[2018-05-07] MEDS ORDERED: LORazepam 2 MG/ML SDV IVPUSH ONE (22:46)
--- NOTE | 2018-05-07 22:53 | EDM.PDOCBH ---
<Chris Tim - Last Filed: 05/08/18 18:08> ED HPI GENERAL MEDICAL PROBLEM - General Chief Complaint: Behavioral/Psych Stated Complaint: MEDICAL VIA LAW ENFORCEMENT Time Seen by Provider: 05/07/18 22:29 - Related Data Allergies Allergy/AdvReac Type Severity Reaction Status Date / Time Sulfa (Sulfonamide Allergy UNKNOWN Verified 05/07/18 22:46 Antibiotics) Home Meds: Home Meds OLANZapine [Zyprexa] 30 mg PO DAILY 06/22/17 [History] Polyethylene Glycol 3350 [MiraLAX] 17 gm PO ASDIRECTED PRN 06/22/17 [History] chlorproMAZINE [Thorazine] 100 mg PO Q3H PRN 06/22/17 [History] cloNIDine [Catapres] 0.1 mg PO Q12HR 06/22/17 [History] ARIPiprazole [Abilify] 30 mg PO DAILY 06/26/17 [History] Finasteride 5 mg PO BEDTIME #30 tablet 03/05/18 [Rx] Tamsulosin [Flomax] 0.4 mg PO DAILY #30 cap.er 03/05/18 [Rx] LORazepam 2 mg PO QID 05/07/18 [History] OLANZapine [ZyPREXA Zydis] 1 tab PO BEDTIME 05/07/18 [History] COURSE, BEHAVIORAL HEALTH COMP - Course Vital Signs: Last Vital Signs Temp 36.8 C 05/08/18 18:57 Pulse 102 H 05/08/18 18:57 Resp 18 05/08/18 18:57 BP 124/76 05/08/18 18:57 Pulse Ox 99 05/08/18 18:57 Orders, Labs, Meds: Active Orders 24 hr Category Date Time Status DRUG SCREEN, URINE [URCHEM] Stat Lab 05/08/18 06:15 Ordered UA W/MICROSCOPIC [URIN] Stat Lab 05/08/18 06:15 Ordered Laboratory Tests 05/07/18 05/07/18 05/07/18 Range/Units 23:00 23:00 23:00 WBC 7.7 (4.5-11.0) K/uL RBC 4.48 (4.30-5.90) M/uL Hgb 13.7 (12.0-15.0) g/dL Hct 40.4 (40.0-54.0) % MCV 90 (80-98) fL MCH 31 (27-31) pg MCHC 34 (32-36) % Plt Count 181 (150-400) K/uL Sodium 145 (140-148) mmol/L Potassium 4.1 (3.6-5.2) mmol/L Chloride 107 (100-108) mmol/L Carbon Dioxide 25 (21-32) mmol/L Anion Gap 13.1 (5.0-14.0) mmol/L BUN 24 H (7-18) mg/dL Creatinine 1.2 (0.8-1.3) mg/dL Est Cr Clr Drug Dosing 67.57 mL/min Estimated GFR (MDRD) > 60 (>60) Glucose 120 H (74-106) mg/dL Calcium 8.8 (8.5-10.1) mg/dL Total Bilirubin 0.7 (0.2-1.0) mg/dL AST 27 (15-37) U/L ALT 27 (12-78) U/L Alkaline Phosphatase 139 H (46-116) U/L Total Protein 6.4 (6.4-8.2) g/dL Albumin 3.6 (3.4-5.0) g/dL Globulin 2.8 (2.3-3.5) g/dL Albumin/Globulin Ratio 1.3 (1.2-2.2) TSH, Ultra Sensitive 2.570 (0.358-3.740) uIU/mL Urine Color Urine Appearance Urine pH (4.5-8.0) Ur Specific [place] (1.008-1.030) Urine Protein (NEGATIVE) mg/dL Urine Glucose (UA) (NEGATIVE) mg/dL Urine Ketones (NEGATIVE) mg/dL Urine Occult Blood (NEGATIVE) Urine Nitrite (NEGAITVE) Urine Bilirubin (NEGATIVE) Urine Urobilinogen (NORMAL) mg/dL Ur Leukocyte Esterase (NEGATIVE) Urine RBC (0-5) Urine WBC (0-5) Ur Epithelial Cells Amorphous Sediment Urine Bacteria Urine Mucus Salicylates (2.0-20.0) mg/dL Urine Opiates Screen (NEGATIVE) Ur Oxycodone Screen (NEGATIVE) Urine Methadone Screen (NEGATIVE) Ur Propoxyphene Screen (NEGATIVE) Acetaminophen 0.0 L (10.0-30.0) ug/mL Ur Barbiturates Screen (NEGATIVE) Ur Tricyclics Screen (NEGATIVE) Ur Phencyclidine Scrn (NEGATIVE) Ur Amphetamine Screen (NEGATIVE) U Methamphetamines Scrn (NEGATIVE) Urine MDMA Screen (NEGATIVE) U Benzodiazepines Scrn (NEGATIVE) U Cocaine Metab Screen (NEGATIVE) U Marijuana (THC) Screen (NEGATIVE) Ethyl Alcohol mg/dL 05/07/18 05/07/18 05/08/18 Range/Units 23:00 23:00 06:15 WBC (4.5-11.0) K/uL RBC (4.30-5.90) M/uL Hgb (12.0-15.0) g/dL Hct (40.0-54.0) % MCV (80-98) fL MCH (27-31) pg MCHC (32-36) % Plt Count (150-400) K/uL Sodium (140-148) mmol/L Potassium (3.6-5.2) mmol/L Chloride (100-108) mmol/L Carbon Dioxide (21-32) mmol/L Anion Gap (5.0-14.0) mmol/L BUN (7-18) mg/dL Creatinine (0.8-1.3) mg/dL Est Cr Clr Drug Dosing mL/min Estimated GFR (MDRD) (>60) Glucose (74-106) mg/dL Calcium (8.5-10.1) mg/dL Total Bilirubin (0.2-1.0) mg/dL AST (15-37) U/L ALT (12-78) U/L Alkaline Phosphatase (46-116) U/L Total Protein (6.4-8.2) g/dL Albumin (3.4-5.0) g/dL Globulin (2.3-3.5) g/dL Albumin/Globulin Ratio (1.2-2.2) TSH, Ultra Sensitive (0.358-3.740) uIU/mL Urine Color [place] Urine Appearance Slightly cloudy Urine pH 6.0 (4.5-8.0) Ur Specific [place] 1.025 (1.008-1.030) Urine Protein Negative (NEGATIVE) mg/dL Urine Glucose (UA) Normal (NEGATIVE) mg/dL Urine Ketones Negative (NEGATIVE) mg/dL Urine Occult Blood Negative (NEGATIVE) Urine Nitrite Negative (NEGAITVE) Urine Bilirubin Small (NEGATIVE) Urine Urobilinogen 4 (NORMAL) mg/dL Ur Leukocyte Esterase Negative (NEGATIVE) Urine RBC 0-5 (0-5) Urine WBC 0-5 (0-5) Ur Epithelial Cells Not seen Amorphous Sediment Few Urine Bacteria Not seen Urine Mucus Not seen Salicylates 0.4 L (2.0-20.0) mg/dL Urine Opiates Screen (NEGATIVE) Ur Oxycodone Screen (NEGATIVE) Urine Methadone Screen (NEGATIVE) Ur Propoxyphene Screen (NEGATIVE) Acetaminophen (10.0-30.0) ug/mL Ur Barbiturates Screen (NEGATIVE) Ur Tricyclics Screen (NEGATIVE) Ur Phencyclidine Scrn (NEGATIVE) Ur Amphetamine Screen (NEGATIVE) U Methamphetamines Scrn (NEGATIVE) Urine MDMA Screen (NEGATIVE) U Benzodiazepines Scrn (NEGATIVE) U Cocaine Metab Screen (NEGATIVE) U Marijuana (THC) Screen (NEGATIVE) Ethyl Alcohol < 3 mg/dL 05/08/18 Range/Units 06:15 WBC (4.5-11.0) K/uL RBC (4.30-5.90) M/uL Hgb (12.0-15.0) g/dL Hct (40.0-54.0) % MCV (80-98) fL MCH (27-31) pg MCHC (32-36) % Plt Count (150-400) K/uL Sodium (140-148) mmol/L Potassium (3.6-5.2) mmol/L Chloride (100-108) mmol/L Carbon Dioxide (21-32) mmol/L Anion Gap (5.0-14.0) mmol/L BUN (7-18) mg/dL Creatinine (0.8-1.3) mg/dL Est Cr Clr Drug Dosing mL/min Estimated GFR (MDRD) (>60) Glucose (74-106) mg/dL Calcium (8.5-10.1) mg/dL Total Bilirubin (0.2-1.0) mg/dL AST (15-37) U/L ALT (12-78) U/L Alkaline Phosphatase (46-116) U/L Total Protein (6.4-8.2) g/dL Albumin (3.4-5.0) g/dL Globulin (2.3-3.5) g/dL Albumin/Globulin Ratio (1.2-2.2) TSH, Ultra Sensitive (0.358-3.740) uIU/mL Urine Color Urine Appearance Urine pH (4.5-8.0) Ur Specific [place] (1.008-1.030) Urine Protein (NEGATIVE) mg/dL Urine Glucose (UA) (NEGATIVE) mg/dL Urine Ketones (NEGATIVE) mg/dL Urine Occult Blood (NEGATIVE) Urine Nitrite (NEGAITVE) Urine Bilirubin (NEGATIVE) Urine Urobilinogen (NORMAL) mg/dL Ur Leukocyte Esterase (NEGATIVE) Urine RBC (0-5) Urine WBC (0-5) Ur Epithelial Cells Amorphous Sediment Urine Bacteria Urine Mucus Salicylates (2.0-20.0) mg/dL Urine Opiates Screen Negative (NEGATIVE) Ur Oxycodone Screen Negative (NEGATIVE) Urine Methadone Screen Negative (NEGATIVE) Ur Propoxyphene Screen Negative (NEGATIVE) Acetaminophen (10.0-30.0) ug/mL Ur Barbiturates Screen Negative (NEGATIVE) Ur Tricyclics Screen Negative (NEGATIVE) Ur Phencyclidine Scrn Negative (NEGATIVE) Ur Amphetamine Screen Negative (NEGATIVE) U Methamphetamines Scrn Negative (NEGATIVE) Urine MDMA Screen Negative (NEGATIVE) U Benzodiazepines Scrn Presumptive positive H (NEGATIVE) U Cocaine Metab Screen Negative (NEGATIVE) U Marijuana (THC) Screen Negative (NEGATIVE) Ethyl Alcohol mg/dL Medications Discontinued Medications Generic Name Dose Route Start Last Admin Trade Name Randell PRN Reason Stop Dose Admin Aripiprazole 30 mg 05/08/18 09:37 05/08/18 10:00 Abilify PO 05/08/18 09:38 30 mg ONETIME ONE Administration Chlorpromazine HCl 25 mg 05/08/18 02:09 05/08/18 02:15 Thorazine IM 05/08/18 02:10 25 mg ONETIME ONE Administration Chlorpromazine HCl 100 mg 05/08/18 18:11 05/08/18 18:56 Thorazine PO 05/08/18 18:12 100 mg ONETIME ONE Administration Clonidine HCl 0.1 mg 05/08/18 09:37 05/08/18 09:59 Catapres PO 05/08/18 09:38 0.1 mg ONETIME ONE Administration Haloperidol Lactate 1 mg 05/07/18 22:46 05/08/18 01:50 Haldol IVPUSH 05/07/18 22:47 Not Given ONETIME ONE Haloperidol Lactate 10 mg 05/07/18 23:29 05/07/18 23:40 Haldol IM 05/07/18 23:30 10 mg ONETIME ONE Administration Lorazepam 5 mg 05/07/18 22:46 05/08/18 01:50 Ativan IVPUSH 05/07/18 22:47 Not Given ONETIME ONE Lorazepam 1 mg 05/07/18 23:29 05/07/18 23:40 Ativan IM 05/07/18 23:30 1 mg ONETIME ONE Administration Lorazepam 2 mg 05/08/18 09:37 05/08/18 09:58 Ativan PO 05/08/18 09:38 2 mg ONETIME ONE Administration Lorazepam 2 mg 05/08/18 18:10 05/08/18 18:56 Ativan PO 05/08/18 18:11 2 mg ONETIME ONE Administration Lorazepam Confirm 05/08/18 18:31 05/08/18 19:23 Ativan Administered 05/08/18 18:32 Not Given Dose 2 mg .ROUTE .STK-MED ONE Olanzapine 30 mg 05/08/18 09:37 05/08/18 09:58 Zyprexa PO 05/08/18 09:38 30 mg ONETIME ONE Administration Sodium Chloride 10 ml 05/07/18 22:46 Saline Flush FLUSH ASDIRECTED PRN Keep Vein Open Tamsulosin HCl 0.4 mg 05/08/18 09:37 05/08/18 10:00 Flomax PO 05/08/18 09:38 0.4 mg ONETIME ONE Administration Re-Assessment/Re-Exam: Patient continued to be calm and fairly cooperative, but did tend to wander frequently. His regular medications of Zyprexa, Abilify, clonidine, and lorazepam were given. Patient was eventually accepted at [facility]. Transportation was arranged. Patient was given at evening lorazepam dose of 2 mg , and Thorazine 100 mg by mouth just over an hour prior to anticipated arrival of his transport. Departure - Departure Disposition: DC/Tfer to Psych Hosp/Unit [facility] Condition: Fair Clinical Impression: Agitation Schizophrenia Qualifiers: Schizophrenia type: undifferentiated schizophrenia Qualified Code(s): F20.3 - Undifferentiated schizophrenia - Discharge Information Instructions: Schizophrenia Referrals: PCP,None [Primary Care Provider] - Forms: ED Department Discharge Care Plan Goals: Patient is to be transported by [address] transportation to [facility] for inpatient evaluation and treatment for exacerbation of agitation, dangerous behaviors and stabilization of chronic schizophrenia. - My Orders Last 24 Hours: My Active Orders 05/08/18 06:15 DRUG SCREEN, URINE [URCHEM] Stat UA W/MICROSCOPIC [URIN] Stat - Assessment/Plan Last 24 Hours: My Active Orders 05/08/18 06:15 DRUG SCREEN, URINE [URCHEM] Stat UA W/MICROSCOPIC [URIN] Stat <Glynn Rosales - Last Filed: 05/09/18 01:11> ED HPI GENERAL MEDICAL PROBLEM - General Source of Information: Reports: Police, Other (longterm staff) History Limitations: Reports: Combative/Threatening, Other (psychiatric illness limited communication) - History of Present Illness INITIAL COMMENTS - FREE TEXT/NARRATIVE: Brought in by police after a call from the longterm where the patient lives Chief complaint Violent behavior History of present illness 62-year-old male with variable ability to communicate Today we'll became quite violent restless throwing chairs at the longterm where he has lived for several years. Recent treatment for stage III lymphoma Diagnosed with schizophrenia for which she is on medication. Has been to emergency twice last month on March 27 when he was uncooperative at the longterm and on March 31 after concerns that he was dehydrated because he was not eating and drinking. During the latter visit he became quite violent and needed sedation with medication before he could be discharged back to the longterm. The longterm reports that times he can carry on a conversation but other times he can be noncommunicative at all. No recent fever or infection or injury Patient will talk to me but it is difficult to get any meaningful responses He has no questions or better, he denies pain or being hungry Past Medical History Cardiovascular History: Reports: High Cholesterol Genitourinary History: Reports: Retention, Urinary Psychiatric History: Reports: Schizophrenia Oncologic (Cancer) History: Reports: Other (See Below) Other Oncologic History: metastisis bone cancer. Social & Family History - Family History Family Medical History: Noncontributory - Caffeine Use Caffeine Use: Reports: Coffee ED ROS GENERAL - Review of Systems Review Of Systems: Unable To Obtain (poor communication, schizophrenia) Constitutional: Reports: ROS unobtainable ED EXAM, BEHAVIORAL HEALTH - Physical Exam Exam: See Below Exam Limited By: Combative/Threatening (he is now on 4 point restraints by police, transferred to [facility]) General Appearance: Alert, Other (unable to assess, vital signs show a pulse 100 but no other significant findings, [place] in response to my questions but can answer yes no questions) Eye Exam: Bilateral Eye: Normal Inspection Ears: Normal External Exam, Hearing Grossly Normal Nose: Normal Inspection, Normal Mucosa, No Blood Throat/Mouth: Other (dry mouth) Head: Atraumatic, Normocephalic Neck: Supple, Non-Tender. No: Lymphadenopathy (R), Lymphadenopathy (L) Respiratory/Chest: No Respiratory Distress, Lungs Clear, No Accessory Muscle Use Cardiovascular: Normal Peripheral Pulses, Regular Rate, Rhythm, No Murmur GI/Abdominal: Normal Bowel Sounds, Soft, Non-Tender, No Organomegaly, No Distention Extremities: Normal Inspection Neurological: Alert, No Motor/Sensory Deficits, Other (unintelligible conversation) Psychiatric: Alert, Agitated, Poor Eye Contact Skin Exam: Warm, Dry, No rash COURSE, BEHAVIORAL HEALTH COMP - Course Re-Assessment/Re-Exam: 62-year-old male with chronic schizophrenia and stage III lymphoma, intermittent agitation at the longterm where he is staying. Enlarging noncommunicative although he does deny abdominal pain or hunger, occasionally responds to questions. Due to his violent behavior he was transferred here Sedation with haloperidol 5 mg IV lorazepam 1 mg IM Lab tests ordered labs unremarkable still quite restless at this time Attempting to obtain psychiatric placement Thorazine 25 mg IM he has calmed and was able to be taken off restraints during his stay here Awaiting psychiatric assessment/placement Transferred to Dr. Tim while here Departure - Departure Time of Disposition: 21:00 Condition: Fair
[2018-05-07] MEDS ORDERED: Haloperidol Lactate 5 MG/ML SDV IM ONE (23:29)
[2018-05-07] MEDS ORDERED: LORazepam 2 MG/ML SDV IM ONE (23:29)
[2018-05-08] MEDS ORDERED: chlorproMAZINE 50 MG/2 ML Amp IM ONE (02:09)
[2018-05-08] MEDS ORDERED: cloNIDine 0.1 MG Tab PO ONE (09:37)
[2018-05-08] MEDS ORDERED: ARIPiprazole 10 MG Tab PO ONE (09:37)
[2018-05-08] MEDS ORDERED: Tamsulosin 0.4 MG Cap.ER PO ONE (09:37)
[2018-05-08] MEDS ORDERED: OLANZapine 5 MG Tab PO ONE (09:37)
[2018-05-08] MEDS ORDERED: LORazepam 1 MG Tab PO ONE ×2 (09:37→18:10)
[2018-05-08] MEDS ORDERED: chlorproMAZINE 25 MG Tab PO ONE (18:11)
[2018-05-08] MEDS ORDERED: LORazepam 1 MG Tab ONE (18:31)
[2018-05-08 18:58] VITALS: BP 124/76
[2018-05-08] MEDS ORDERED: Thiamine 100 MG Tab PO SCH (21:00)
== END 2018-05-08 20:00 ==
LOC: JP.ED 22:17
DX: F20.3 Undifferentiated schizophrenia (principal); E78.00 Pure hypercholesterolemia, unspecified; Z88.2 Allergy status to sulfonamides; Z79.899 Other long term (current) drug therapy
CPT/HCPCS: 36415; 80053; 80305; 81001; 84443; 85027; 96372; 99285; A9270; G0480; J1630; J2060; J3230